=== PATIENT | male | born 1965 | race Caucasian/White ===

== ENCOUNTER 2018-04-12 13:09 | Observation (INO) | payer MEDICAID, OTHER ==
[2018-04-12] MEDS ORDERED: Sodium Chloride 0.9% 10 ML Syringe FLUSH PRN (13:32)
[2018-04-12] MEDS ORDERED: Sodium Chloride 0.9% 2.5 ML Syringe FLUSH PRN (13:32)
--- NOTE | 2018-04-12 13:51 | EDM.PDOC ---
ED HPI GENERAL MEDICAL PROBLEM - General Chief Complaint: Gastrointestinal Problem Stated Complaint: STOMACH PROBLEMS Time Seen by Provider: 04/12/18 13:45 Source of Information: Reports: Patient History Limitations: Reports: No Limitations - History of Present Illness INITIAL COMMENTS - FREE TEXT/NARRATIVE: HISTORY AND PHYSICAL: History of present illness: Patient is a 53-year-old male here with complaint of "stomach issues." Patient states that he has had diarrhea on and off for the past few months. He states it will come suddenly and sometimes will be incontinent of bowel due to this. He states he has been more bloated the past couple of weeks. He denies any abdominal pain, nausea, vomiting, chest pain, SOB, melena, hematochezia, fevers , chills. He also notes that he is concerned about his prostate stating that for the past year he has had to urinate more frequently as well as having trouble starting his stream. He states he has scheduled a colonoscopy for beginning of April. Patient does not have a PCP and denies any significant past medical history. Patient reports occasional alcohol use. Patient also report some weight loss of approximately 20 pounds within the last 2 months. Review of systems: As per history of present illness and below otherwise all systems reviewed and negative. Past medical history: As per history of present illness and as reviewed below otherwise noncontributory. Surgical history: As per history of present illness and as reviewed below otherwise noncontributory. Social history: Smokes 1 ppd x 35 years No reported history of drug or alcohol abuse. Family history: As per history of present illness and as reviewed below otherwise noncontributory. Physical exam: General: Patient sitting comfortably in no acute distress and nontoxic appearing HEENT: Atraumatic, normocephalic, pupils reactive, negative for conjunctival pallor or scleral icterus, mucous membranes moist, throat clear, neck supple, nontender, trachea midline. No meningeal signs. Lungs: Clear to auscultation, breath sounds equal bilaterally, chest nontender. Heart: S1S2, regular, negative for clicks, rubs, or overt murmur. Abdomen: Mild periumbilical tenderness to palpation. Abdomen is tympanenit and distended. Negative for masses or hepatosplenomegaly. Negative for costovertebral tenderness. Pelvis: Stable nontender. Genitourinary: Deferred. Rectal: Prostate not enlarged or boggy Extremities: Atraumatic, negative for cords or calf pain. Neurovascular unremarkable. Neuro: Awake, alert, oriented. Cranial nerves II through XII unremarkable. Cerebellum unremarkable. Motor and sensory unremarkable throughout. Exam nonfocal. Notes: Diagnostics: CBC, CMP, lipase, UA, UC, PT/INR CT abdomen/pelvis w/ contrast Therapeutics: None Prescriptions: None Impression: Ascites, diarrhea Plan: Discussed with Dr. Cohen, patient will be admitted to observation Definitive disposition and diagnosis as appropriate pending reevaluation and review of above. - Related Data Allergies Allergy/AdvReac Type Severity Reaction Status Date / Time No Known Allergies Allergy Verified 04/12/18 13:21 Home Meds: Home Meds Multivitamin [Children's Multivit W-Extra C] 1 tab DAILY 03/11/14 [History] Past Medical History - Past Surgical History GI Surgical History: Reports: Appendectomy, Colonoscopy Social & Family History - Family History Family Medical History: Noncontributory - Tobacco Use Smoking Status *Q: Current Every Day Smoker Years of Tobacco use: 35 Packs/Tins Daily: 1 - Caffeine Use Caffeine Use: Reports: None - Recreational Drug Use Recreational Drug Use: No ED ROS GENERAL - Review of Systems Review Of Systems: ROS reveals no pertinent complaints other than HPI. ED EXAM, GI/ABD - Physical Exam Exam: See Below (see dictation) Course - Vital Signs Last Recorded V/S: Last Vital Signs Temp 36.1 C 04/12/18 13:19 Pulse 125 H 04/12/18 13:19 Resp 18 04/12/18 13:19 BP 121/89 04/12/18 13:19 Pulse Ox 98 04/12/18 13:19 - Orders/Labs/Meds Orders: Active Orders 24 hr Category Date Time Status CULTURE URINE [RM] Stat Lab 04/12/18 14:04 Ordered UA W/MICROSCOPIC [URIN] Stat Lab 04/12/18 14:04 Ordered Labs: Laboratory Tests 04/12/18 04/12/18 Range/Units 13:37 13:37 WBC 13.50 H (4.0-11.0) K/uL RBC 3.78 L (4.50-5.90) M/uL Hgb 14.6 (13.0-17.0) g/dL Hct 42.1 (38.0-50.0) % MCV 111.4 H (80.0-98.0) fL MCH 38.6 H (27.0-32.0) pg MCHC 34.7 (31.0-37.0) g/dL RDW Std Deviation 54.1 (28.0-62.0) fl RDW Coeff of Charli 13 (11.0-15.0) % Plt Count 124 L (150-400) K/uL MPV 10.20 (7.40-12.00) fL Neut % (Auto) 70.7 (48.0-80.0) % Lymph % (Auto) 22.7 (16.0-40.0) % [place] % (Auto) 5.5 (0.0-15.0) % Eos % (Auto) 0.9 (0.0-7.0) % Baso % (Auto) 0.2 (0.0-1.5) % Neut # (Auto) 9.6 H (1.4-5.7) K/uL Lymph # (Auto) 3.1 H (0.6-2.4) K/uL [place] # (Auto) 0.7 (0.0-0.8) K/uL Eos # (Auto) 0.1 (0.0-0.7) K/uL Baso # (Auto) 0.0 (0.0-0.1) K/uL Nucleated RBC % 0.2 /100WBC Nucleated RBCs # 0 K/uL Sodium 142 (136-148) mmol/L Potassium 4.0 (3.5-5.1) mmol/L Chloride 105 (98-107) mmol/L Carbon Dioxide 26.1 (21.0-32.0) mmol/L BUN 3 L (7.0-18.0) mg/dL Creatinine 0.6 L (0.8-1.3) mg/dL Est Cr Clr Drug Dosing 146.61 mL/min Estimated GFR (MDRD) > 60.0 ml/min Glucose 94 (74-106) mg/dL Calcium 8.1 L (8.5-10.1) mg/dL Total Bilirubin 1.1 H (0.2-1.0) mg/dL AST 103 H (15-37) IU/L ALT 38 (14-63) IU/L Alkaline Phosphatase 476 H (46-116) U/L Total Protein 7.0 (6.4-8.2) g/dL Albumin 2.4 L (3.4-5.0) g/dL Globulin 4.6 H (2.0-3.5) g/dL Albumin/Globulin Ratio 0.5 L (1.3-2.8) Lipase 49 L (73-393) U/L Meds: Medications Discontinued Medications Generic Name Dose Route Start Last Admin Trade Name Freq PRN Reason Stop Dose Admin Iopamidol 100 ml 04/12/18 14:57 04/12/18 14:58 Isovue-370 (76%) IVPUSH 04/12/18 14:58 100 ml ONETIME ONE Administration Sodium Chloride 10 ml 04/12/18 13:32 04/12/18 14:29 Saline Flush FLUSH 10 ml ASDIRECTED PRN Administration Keep Vein Open Sodium Chloride 2.5 ml 04/12/18 13:32 04/12/18 14:29 Saline Flush FLUSH 2.5 ml ASDIRECTED PRN Administration Keep Vein Open Departure - Departure Time of Disposition: 15:59 Disposition: Refer to Observation Condition: Good Clinical Impression: Ascites, Diarrhea - Discharge Information Referrals: PCP,None [Primary Care Provider] - Forms: ED Department Discharge - My Orders Last 24 Hours: My Active Orders 04/12/18 14:04 CULTURE URINE [RM] Stat UA W/MICROSCOPIC [URIN] Stat - Assessment/Plan Last 24 Hours: My Active Orders 04/12/18 14:04 CULTURE URINE [RM] Stat UA W/MICROSCOPIC [URIN] Stat
[2018-04-12 14:16] LABS: CHLORIDE,CL 105 mmol/L (98-107); SODIUM,NA 142 mmol/L (136-148)
[2018-04-12] MEDS ORDERED: Iopamidol 755 Mg/ML 100 ML Bottle IVPUSH ONE (14:57)
--- NOTE | 2018-04-12 15:22 | CT ---
CT of the abdomen and pelvis with contrast. HISTORY: Pain TECHNIQUE: Axial CT images were obtained of the abdomen and pelvis following administration of 100 mL of Isovue-370 in the right antecubital fossa without complication. Coronal and sagittal reconstructi ons obtained. Comparison: 03/11/2014. FINDINGS: The lung bases are clear. Trace right pleural effusion. The liver is heterogeneous in enhancement demonstrating a mildly nodular contour. There is a small to moderate amount of abdominal ascites. The spleen and adrenal glands appear normal. Mild pericholecys tic fluid, likely generalized ascites. There is a 2.3 cm cystic collection at tail of the pancreas, l ikely a residual pseudocyst. Pancreatic duct is otherwise mildly prominent. The kidneys enhance and function symmetrically without evidence of obstructive uropathy. The large and small bowel are normal in caliber without evidence of obstruction. No focal pericolonic inflammation. The urinary bladder is minimally filled. No pelvic lymphadenopathy. No suspicious osseous abnormalities identified. IMPRESSION: 1. The liver is heterogeneous in echotexture and overall hypodense. This likely represents underlying cirrhosis versus active steatohepatitis. 2. Small to moderate amount of abdominal ascites. 3. 2.3 cm cyst at the tail of the pancreas, likely a pseudocyst.
[2018-04-12] MEDS ORDERED: Temazepam 15 MG Cap PO PRN (17:52)
[2018-04-12] MEDS ORDERED: Acetaminophen 325 MG Tab PO PRN (17:52)
[2018-04-12] MEDS ORDERED: LORazepam 1 MG Tab PO PRN (17:53)
[2018-04-12] MEDS: Nicotine 21 MG/24 Hr Patch TRDERM SCH (21:44)
--- NOTE | 2018-04-12 21:54 | PCM.HP ---
H&P History of Present Illness - General Date of Service: 04/12/18 Admit Problem/Dx: Admission Diagnosis/Problem Admission Diagnosis/Problem Ascites - History of Present Illness Initial Comments - Free Text/Narative: He presented today to the ED stating that he notes a fullness in his abdomen. This has been gradual over a few weeks. He denies heavy drinking but states that he has had heavy drinking in the past. He states that he drinks everyday "sometimes". no fever no vomiting no abdominal pain - Related Data Allergies/Adverse Reactions: Allergies Allergy/AdvReac Type Severity Reaction Status Date / Time No Known Allergies Allergy Verified 04/12/18 13:21 Home Medications: Home Meds Multivitamin [Children's Multivit W-Extra C] 1 tab DAILY 03/11/14 [History] Past Medical History Cardiovascular History: Denies: CAD Respiratory History: Reports: Asthma, Other (See Below) Other Respiratory History: asthma as a child Gastrointestinal History: Reports: Chronic Diarrhea Genitourinary History: Reports: Other (See Below) Other Genitourinary History: difficulty urinating Neurological History: Denies: Alzheimers Disease, MS Endocrine/Metabolic History: Denies: Diabetes, Type I, Diabetes, Type II Oncologic (Cancer) History: Denies: Liver - Infectious Disease History Infectious Disease History: Reports: Chicken Pox - Past Surgical History GI Surgical History: Reports: Appendectomy, Colonoscopy Male Surgical History: Reports: None Dermatological Surgical History: Reports: Other (See Below) Social & Family History - Family History Family Medical History: Noncontributory - Tobacco Use Smoking Status *Q: Current Every Day Smoker Years of Tobacco use: 36 Packs/Tins Daily: 1 Second Hand Smoke Exposure: No - Caffeine Use Caffeine Use: Reports: Energy Drinks Caffeine Use Comment: occ energy drink - Alcohol Use Days Per Week of Alcohol Use: 2 Number of Drinks Per Day: 3 Total Drinks Per Week: 6 - Recreational Drug Use Recreational Drug Use: No H&P Review of Systems - Review of Systems: Review Of Systems: See Below General: Denies: Fever, Chills Pulmonary: Denies: Shortness of Breath, Wheezing, Cough, Sputum, Hemoptysis Cardiovascular: Reports: Other (occasional dependent trace LE edema). Denies: Chest Pain Gastrointestinal: Denies: Abdominal Pain, Black Stool, Bloody Stool, Hematemesis , Vomiting Genitourinary: Denies: Dysuria, Hematuria Skin: Denies: Cyanosis Neurological: Denies: Confusion Exam - Exam Exam: See Below - Vital Signs Vital Signs: Last Vital Signs Temp 98.8 F 04/12/18 17:39 Pulse 93 04/12/18 17:39 Resp 18 04/12/18 17:39 BP 136/91 H 04/12/18 17:39 Pulse Ox 94 L 04/12/18 17:39 Weight: 70.488 kg - Exam General: Alert, Oriented, Cooperative HEENT: Other (diffuse gum recession/gingivitis) Neck: Supple, Trachea Midline Lungs: Clear to Auscultation, Normal Respiratory Effort Cardiovascular: Regular Rate, Regular Rhythm GI/Abdominal Exam: Soft, Distended, Other (positive fluid wave c/w ascites). No : Guarding, Rigid, Rebound, Tender (Male) Exam: Deferred Rectal (Males) Exam: Deferred Extremities: Other (trace pretibial edema - pitting) Neurological: Cranial Nerves Intact, Normal Speech Neuro Extensive - Motor, Sensory, Reflexes: No: Facial palsy (L), Facial Palsy ( R) Psychiatric: No: Agitated - Patient Data Lab Results Last 24 hrs: Laboratory Results - last 24 hr 04/12/18 04/12/18 04/12/18 Range/Units 13:37 13:37 13:37 WBC 13.50 H (4.0-11.0) K/uL RBC 3.78 L (4.50-5.90) M/uL Hgb 14.6 (13.0-17.0) g/dL Hct 42.1 (38.0-50.0) % MCV 111.4 H (80.0-98.0) fL MCH 38.6 H (27.0-32.0) pg MCHC 34.7 (31.0-37.0) g/dL RDW Std Deviation 54.1 (28.0-62.0) fl RDW Coeff of Charli 13 (11.0-15.0) % Plt Count 124 L (150-400) K/uL MPV 10.20 (7.40-12.00) fL Neut % (Auto) 70.7 (48.0-80.0) % Lymph % (Auto) 22.7 (16.0-40.0) % [place] % (Auto) 5.5 (0.0-15.0) % Eos % (Auto) 0.9 (0.0-7.0) % Baso % (Auto) 0.2 (0.0-1.5) % Neut # (Auto) 9.6 H (1.4-5.7) K/uL Lymph # (Auto) 3.1 H (0.6-2.4) K/uL [place] # (Auto) 0.7 (0.0-0.8) K/uL Eos # (Auto) 0.1 (0.0-0.7) K/uL Baso # (Auto) 0.0 (0.0-0.1) K/uL Nucleated RBC % 0.2 /100WBC Nucleated RBCs # 0 K/uL INR 1.18 Sodium 142 (136-148) mmol/L Potassium 4.0 (3.5-5.1) mmol/L Chloride 105 (98-107) mmol/L Carbon Dioxide 26.1 (21.0-32.0) mmol/L BUN 3 L (7.0-18.0) mg/dL Creatinine 0.6 L (0.8-1.3) mg/dL Est Cr Clr Drug Dosing 146.61 mL/min Estimated GFR (MDRD) > 60.0 ml/min Glucose 94 (74-106) mg/dL Calcium 8.1 L (8.5-10.1) mg/dL Total Bilirubin 1.1 H (0.2-1.0) mg/dL AST 103 H (15-37) IU/L ALT 38 (14-63) IU/L Alkaline Phosphatase 476 H (46-116) U/L Total Protein 7.0 (6.4-8.2) g/dL Albumin 2.4 L (3.4-5.0) g/dL Globulin 4.6 H (2.0-3.5) g/dL Albumin/Globulin Ratio 0.5 L (1.3-2.8) Lipase 49 L (73-393) U/L Urine Color Urine Appearance Urine pH (5.0-8.0) Ur Specific [place] (1.001-1.035) Urine Protein (NEGATIVE) mg/dL Urine Glucose (UA) (NEGATIVE) mg/dL Urine Ketones (NEGATIVE) mg/dL Urine Occult Blood (NEGATIVE) Urine Nitrite (NEGATIVE) Urine Bilirubin (NEGATIVE) Urine Urobilinogen (<2.0) EU/dL Ur Leukocyte Esterase (NEGATIVE) Urine RBC (0-2/HPF) Urine WBC (0-5/HPF) Ur Epithelial Cells (NONE-FEW) Amorphous Sediment (NEGATIVE) Urine Bacteria (NEGATIVE) Urine Mucus (NONE-MOD) 04/12/18 Range/Units 16:15 WBC (4.0-11.0) K/uL RBC (4.50-5.90) M/uL Hgb (13.0-17.0) g/dL Hct (38.0-50.0) % MCV (80.0-98.0) fL MCH (27.0-32.0) pg MCHC (31.0-37.0) g/dL RDW Std Deviation (28.0-62.0) fl RDW Coeff of Charli (11.0-15.0) % Plt Count (150-400) K/uL MPV (7.40-12.00) fL Neut % (Auto) (48.0-80.0) % Lymph % (Auto) (16.0-40.0) % [place] % (Auto) (0.0-15.0) % Eos % (Auto) (0.0-7.0) % Baso % (Auto) (0.0-1.5) % Neut # (Auto) (1.4-5.7) K/uL Lymph # (Auto) (0.6-2.4) K/uL [place] # (Auto) (0.0-0.8) K/uL Eos # (Auto) (0.0-0.7) K/uL Baso # (Auto) (0.0-0.1) K/uL Nucleated RBC % /100WBC Nucleated RBCs # K/uL INR Sodium (136-148) mmol/L Potassium (3.5-5.1) mmol/L Chloride (98-107) mmol/L Carbon Dioxide (21.0-32.0) mmol/L BUN (7.0-18.0) mg/dL Creatinine (0.8-1.3) mg/dL Est Cr Clr Drug Dosing mL/min Estimated GFR (MDRD) ml/min Glucose (74-106) mg/dL Calcium (8.5-10.1) mg/dL Total Bilirubin (0.2-1.0) mg/dL AST (15-37) IU/L ALT (14-63) IU/L Alkaline Phosphatase (46-116) U/L Total Protein (6.4-8.2) g/dL Albumin (3.4-5.0) g/dL Globulin (2.0-3.5) g/dL Albumin/Globulin Ratio (1.3-2.8) Lipase (73-393) U/L Urine Color YELLOW Urine Appearance CLEAR Urine pH 7.5 (5.0-8.0) Ur Specific [place] 1.010 (1.001-1.035) Urine Protein NEGATIVE (NEGATIVE) mg/dL Urine Glucose (UA) NEGATIVE (NEGATIVE) mg/dL Urine Ketones NEGATIVE (NEGATIVE) mg/dL Urine Occult Blood NEGATIVE (NEGATIVE) Urine Nitrite NEGATIVE (NEGATIVE) Urine Bilirubin NEGATIVE (NEGATIVE) Urine Urobilinogen 2.0 H (<2.0) EU/dL Ur Leukocyte Esterase NEGATIVE (NEGATIVE) Urine RBC NONE SEEN (0-2/HPF) Urine WBC 0-2 (0-5/HPF) Ur Epithelial Cells RARE (NONE-FEW) Amorphous Sediment NOT SEEN (NEGATIVE) Urine Bacteria NOT SEEN (NEGATIVE) Urine Mucus LIGHT (NONE-MOD) Result Diagrams: 04/12/18 13:37 04/12/18 13:37 - Problem List (1) Hepatic cirrhosis SNOMED Code(s): 98454287 ICD Code: K74.60 - UNSPECIFIED CIRRHOSIS OF LIVER Status: Acute Current Visit: Yes (2) Ascites SNOMED Code(s): 670152765 ICD Code: R18.8 - OTHER ASCITES Status: Acute Current Visit: Yes Problem List Initiated/Reviewed/Updated: Yes Orders Last 24hrs: Active Orders 24 hr Category Date Time Status Admission Status [Patient Status] [ADT] Stat ADT 04/12/18 15:59 Active Oxygen Therapy [RC] PRN Care 04/12/18 20:40 Active VTE/DVT Education [RC] PER UNIT ROUTINE Care 04/12/18 20:40 Active Vital Signs [RC] Q4H Care 04/12/18 20:40 Active Regular Diet [DIET] Diet 04/12/18 Dinner Active US Guidance Paracentesis NC [CR] Routine Exams 04/13/18 09:00 Ordered CBC WITH AUTO DIFF [HEME] Routine Lab 04/13/18 05:11 Ordered COMPREHENSIVE METABOLIC PN,CMP [CHEM] Routine Lab 04/13/18 05:11 Ordered CULTURE URINE [RM] Stat Lab 04/12/18 14:04 Ordered HEPATITIS PANEL (4) [REF] Routine Lab 04/13/18 05:11 Ordered INR,PT,PROTHROMBIN TIME [COAG] Routine Lab 04/13/18 05:11 Ordered Acetaminophen [Tylenol] Med 04/12/18 17:52 Active 325 mg PO Q4H PRN LORazepam [Ativan] Med 04/12/18 17:53 Active 1 mg PO Q6H PRN Multivitamins [Tab-A-Portillo] Med 04/13/18 09:00 Active 1 tab PO DAILY Nicotine [Habitrol] Med 04/12/18 21:30 Active 21 mg TRDERM DAILY Temazepam [Restoril] Med 04/12/18 17:52 Active 15 mg PO BEDTIME PRN Resuscitation Status Routine Resus Stat 04/12/18 20:40 Ordered Medication Orders Acetaminophen (Tylenol) 325 mg PO Q4H PRN PRN Reason: PAIN/FEVER Lorazepam (Ativan) 1 mg PO Q6H PRN PRN Reason: ANXIETY Multivitamins/Minerals/Vitamin C (Tab-A-Portillo) 1 tab PO DAILY MARIZA Nicotine (Habitrol) 21 mg TRDERM DAILY MARIZA Last Admin: 04/12/18 21:44 Dose: 21 mg Temazepam (Restoril) 15 mg PO BEDTIME PRN PRN Reason: SLEEP Assessment/Plan Comment:: I spoke with Dr Santiago Moe and have ordered an ultrasound guided paracentesis tomorrow.
[2018-04-12] MEDS ORDERED: Thiamine 100 MG Tab PO SCH (22:00)
[2018-04-13 05:51] LABS: CHLORIDE,CL 102 mmol/L (98-107); SODIUM,NA 137 mmol/L (136-148)
[2018-04-13] MEDS: Nicotine 21 MG/24 Hr Patch TRDERM SCH (08:48)
[2018-04-13] MEDS ORDERED: Multivitamin Tab PO SCH (09:00)
[2018-04-13 12:00] VITALS: BP 143/99
--- NOTE | 2018-04-13 15:00 | PCM.DCSUM1 ---
Discharge Summary - Hospital Course Free Text/Narrative:: He was admitted for monitoring with a plan to do an ultrasound guided paracentesis. - Discharge Data Discharge Date: 04/13/18 Discharge Disposition: Home, Self-Care 01 Condition: Stable - Discharge Diagnosis/Problem(s) (1) Hepatic cirrhosis SNOMED Code(s): 29955828 ICD Code: K74.60 - UNSPECIFIED CIRRHOSIS OF LIVER Status: Acute Current Visit: Yes (2) Ascites SNOMED Code(s): 956837934 ICD Code: R18.8 - OTHER ASCITES Status: Acute Current Visit: Yes - Patient Summary/Data Hospital Course: He was monitored. Lab was ordered which showed changes suggestive of alcoholic chronic liver disease including, macrocytosis, thrombocytopenia, low serum protein, low folic acid level, low serum magnesium, elevated serum ammonia. Hepatitis serology is pending. Imaging showed changes of steatohepatitis and ascites. I advised against a paracentesis at this time as I believe it very unlikely to be of therapeutic benefit to him. Impression chronic liver cirrhosis Plan follow up with family medicine avoid any alcohol thiamine 100 mg daily x one week folic acid 1 mg daily magnesium oxide 400 mg bid Alvarado Cohen MD - Discharge Plan Prescriptions/Med Rec: Folic Acid 1 mg PO BEDTIME #100 tab Thiamine [Vitamin B-1] 100 mg PO BEDTIME #7 tablet Home Medications: Home Meds Folic Acid 1 mg PO BEDTIME #100 tab 04/13/18 [Rx] Thiamine [Vitamin B-1] 100 mg PO BEDTIME #7 tablet 04/13/18 [Rx] Forms: ED Department Discharge Referrals: PCP,None [Primary Care Provider] - - Patient Data Vitals - Most Recent: Last Vital Signs Temp 97.7 F 04/13/18 11:59 Pulse 92 04/13/18 11:59 Resp 20 04/13/18 11:59 BP 143/99 H 04/13/18 11:59 Pulse Ox 97 04/13/18 11:59 Weight - Most Recent: 70.488 kg I&O - Last 24 hours: Intake & Output 04/12/18 04/13/18 04/13/18 22:59 06:59 14:59 Intake Total 210 Output Total 400 Balance -190 Lab Results - Last 24 hrs: Laboratory Results - last 24 hr 04/12/18 04/12/18 04/13/18 Range/Units 13:37 16:15 05:05 WBC 10.51 (4.0-11.0) K/uL RBC 3.48 L (4.50-5.90) M/uL Hgb 12.9 L (13.0-17.0) g/dL Hct 38.2 (38.0-50.0) % MCV 109.8 H (80.0-98.0) fL MCH 37.1 H (27.0-32.0) pg MCHC 33.8 (31.0-37.0) g/dL RDW Std Deviation 52.0 (28.0-62.0) fl RDW Coeff of Charli 13 (11.0-15.0) % Plt Count 108 L (150-400) K/uL MPV 10.50 (7.40-12.00) fL Neut % (Auto) 75.2 (48.0-80.0) % Lymph % (Auto) 15.8 L (16.0-40.0) % [place] % (Auto) 7.9 (0.0-15.0) % Eos % (Auto) 0.7 (0.0-7.0) % Baso % (Auto) 0.4 (0.0-1.5) % Neut # (Auto) 7.9 H (1.4-5.7) K/uL Lymph # (Auto) 1.7 (0.6-2.4) K/uL [place] # (Auto) 0.8 (0.0-0.8) K/uL Eos # (Auto) 0.1 (0.0-0.7) K/uL Baso # (Auto) 0.0 (0.0-0.1) K/uL Nucleated RBC % 0.0 /100WBC Nucleated RBCs # 0 K/uL INR 1.18 Sodium (136-148) mmol/L Potassium (3.5-5.1) mmol/L Chloride (98-107) mmol/L Carbon Dioxide (21.0-32.0) mmol/L BUN (7.0-18.0) mg/dL Creatinine (0.8-1.3) mg/dL Est Cr Clr Drug Dosing mL/min Estimated GFR (MDRD) ml/min Glucose (74-106) mg/dL Calcium (8.5-10.1) mg/dL Magnesium (1.8-2.4) mg/dL Total Bilirubin (0.2-1.0) mg/dL AST (15-37) IU/L ALT (14-63) IU/L Alkaline Phosphatase (46-116) U/L Ammonia (19-54) ug/dL Total Protein (6.4-8.2) g/dL Albumin (3.4-5.0) g/dL Globulin (2.0-3.5) g/dL Albumin/Globulin Ratio (1.3-2.8) Urine Color YELLOW Urine Appearance CLEAR Urine pH 7.5 (5.0-8.0) Ur Specific [place] 1.010 (1.001-1.035) Urine Protein NEGATIVE (NEGATIVE) mg/dL Urine Glucose (UA) NEGATIVE (NEGATIVE) mg/dL Urine Ketones NEGATIVE (NEGATIVE) mg/dL Urine Occult Blood NEGATIVE (NEGATIVE) Urine Nitrite NEGATIVE (NEGATIVE) Urine Bilirubin NEGATIVE (NEGATIVE) Urine Urobilinogen 2.0 H (<2.0) EU/dL Ur Leukocyte Esterase NEGATIVE (NEGATIVE) Urine RBC NONE SEEN (0-2/HPF) Urine WBC 0-2 (0-5/HPF) Ur Epithelial Cells RARE (NONE-FEW) Amorphous Sediment NOT SEEN (NEGATIVE) Urine Bacteria NOT SEEN (NEGATIVE) Urine Mucus LIGHT (NONE-MOD) 04/13/18 04/13/18 04/13/18 Range/Units 05:05 05:05 06:05 WBC (4.0-11.0) K/uL RBC (4.50-5.90) M/uL Hgb (13.0-17.0) g/dL Hct (38.0-50.0) % MCV (80.0-98.0) fL MCH (27.0-32.0) pg MCHC (31.0-37.0) g/dL RDW Std Deviation (28.0-62.0) fl RDW Coeff of Charli (11.0-15.0) % Plt Count (150-400) K/uL MPV (7.40-12.00) fL Neut % (Auto) (48.0-80.0) % Lymph % (Auto) (16.0-40.0) % [place] % (Auto) (0.0-15.0) % Eos % (Auto) (0.0-7.0) % Baso % (Auto) (0.0-1.5) % Neut # (Auto) (1.4-5.7) K/uL Lymph # (Auto) (0.6-2.4) K/uL [place] # (Auto) (0.0-0.8) K/uL Eos # (Auto) (0.0-0.7) K/uL Baso # (Auto) (0.0-0.1) K/uL Nucleated RBC % /100WBC Nucleated RBCs # K/uL INR 1.25 Sodium 137 (136-148) mmol/L Potassium 3.8 (3.5-5.1) mmol/L Chloride 102 (98-107) mmol/L Carbon Dioxide 27.2 (21.0-32.0) mmol/L BUN 3 L (7.0-18.0) mg/dL Creatinine 0.6 L (0.8-1.3) mg/dL Est Cr Clr Drug Dosing 141.96 mL/min Estimated GFR (MDRD) > 60.0 ml/min Glucose 95 (74-106) mg/dL Calcium 7.8 L (8.5-10.1) mg/dL Magnesium 1.2 L (1.8-2.4) mg/dL Total Bilirubin 1.6 H (0.2-1.0) mg/dL AST 82 H (15-37) IU/L ALT 33 (14-63) IU/L Alkaline Phosphatase 426 H (46-116) U/L Ammonia 82 H (19-54) ug/dL Total Protein 6.3 L (6.4-8.2) g/dL Albumin 2.2 L (3.4-5.0) g/dL Globulin 4.1 H (2.0-3.5) g/dL Albumin/Globulin Ratio 0.5 L (1.3-2.8) Urine Color Urine Appearance Urine pH (5.0-8.0) Ur Specific [place] (1.001-1.035) Urine Protein (NEGATIVE) mg/dL Urine Glucose (UA) (NEGATIVE) mg/dL Urine Ketones (NEGATIVE) mg/dL Urine Occult Blood (NEGATIVE) Urine Nitrite (NEGATIVE) Urine Bilirubin (NEGATIVE) Urine Urobilinogen (<2.0) EU/dL Ur Leukocyte Esterase (NEGATIVE) Urine RBC (0-2/HPF) Urine WBC (0-5/HPF) Ur Epithelial Cells (NONE-FEW) Amorphous Sediment (NEGATIVE) Urine Bacteria (NEGATIVE) Urine Mucus (NONE-MOD) Med Orders - Current: Current Medications Acetaminophen (Tylenol) 325 mg PO Q4H PRN PRN Reason: PAIN/FEVER Lorazepam (Ativan) 1 mg PO Q6H PRN PRN Reason: ANXIETY Multivitamins/Minerals/Vitamin C (Tab-A-Portillo) 1 tab PO DAILY [facility] Last Admin: 04/13/18 08:48 Dose: 1 tab Nicotine (Habitrol) 21 mg TRDERM DAILY [facility] Last Admin: 04/13/18 08:48 Dose: 21 mg Temazepam (Restoril) 15 mg PO BEDTIME PRN PRN Reason: SLEEP Last Admin: 04/12/18 22:24 Dose: 15 mg Thiamine HCl (Vitamin B-1) 100 mg PO BEDTIME [facility] Last Admin: 04/12/18 22:23 Dose: 100 mg Discontinued Medications Iopamidol (Isovue-370 (76%)) 100 ml IVPUSH ONETIME ONE Stop: 04/12/18 14:58 Last Admin: 04/12/18 14:58 Dose: 100 ml Sodium Chloride (Saline Flush) 10 ml FLUSH ASDIRECTED PRN PRN Reason: Keep Vein Open Last Admin: 04/12/18 14:29 Dose: 10 ml Sodium Chloride (Saline Flush) 2.5 ml FLUSH ASDIRECTED PRN PRN Reason: Keep Vein Open Last Admin: 04/12/18 14:29 Dose: 2.5 ml
== END 2018-04-13 16:10 | disposition home or self-care (01) ==
LOC: MW.ED 13:09 → MW.MS 15:59
PROVIDERS: ADMIT Family Medicine; ATTEND Family Medicine
DX: K74.60 Unspecified cirrhosis of liver (principal); R18.8 Other ascites; K86.2 Cyst of pancreas; I25.10 Atherosclerotic heart disease of native coronary artery without angina pectoris; J45.909 Unspecified asthma, uncomplicated; E11.9 Type 2 diabetes mellitus without complications; F17.210 Nicotine dependence, cigarettes, uncomplicated; Z79.899 Other long term (current) drug therapy
CPT/HCPCS: 36415; 74177; 80053; 80074; 81001; 82140; 83690; 83735; 85025; 85610; 87086; 99285; A9270; G0378; Q9967

== ENCOUNTER 2018-08-14 11:32 | Emergency (ER) | payer SELFPAY ==
[2018-08-14] MEDS ORDERED: Aspirin 81 MG Tab.Chew PO ONE (11:34)
--- NOTE | 2018-08-14 11:35 | EDM.PDOC ---
ED HPI GENERAL MEDICAL PROBLEM - General Chief Complaint: Chest Pain Stated Complaint: CHEST PAIN SHORTNESS OF BREATH Time Seen by Provider: 08/14/18 11:34 Source of Information: Reports: Patient - History of Present Illness INITIAL COMMENTS - FREE TEXT/NARRATIVE: HISTORY AND PHYSICAL: History of present illness: [A shunt presents with right-sided chest pain/discomfort 3 out of 10 worsened by movement and can reproduce with palpation no fever nausea vomiting chills sweats no substernal chest pain shortness breath headache dizziness or palpitation no bowel or urine symptoms no diaphoresis no radiation arm neck or jaw ] Review of systems: As per history of present illness and below otherwise all systems reviewed and negative. Past medical history: As per history of present illness and as reviewed below otherwise noncontributory. Surgical history: As per history of present illness and as reviewed below otherwise noncontributory. Social history: No reported history of drug or alcohol abuse. Family history: As per history of present illness and as reviewed below otherwise noncontributory. Physical exam: HEENT: Atraumatic, normocephalic, pupils reactive, negative for conjunctival pallor or scleral icterus, mucous membranes moist, throat clear, neck supple, nontender, trachea midline. Lungs: Clear to auscultation, breath sounds equal bilaterally, chest nontender. Heart: S1S2, regular, negative for clicks, rubs, or JVD. Abdomen: Soft, nondistended, nontender. Negative for masses or hepatosplenomegaly. Negative for costovertebral tenderness. Pelvis: Stable nontender. Genitourinary: Deferred. Rectal: Deferred. Extremities: Atraumatic, negative for cords or calf pain. Neurovascular unremarkable. Neuro: Awake, alert, oriented. Cranial nerves II through XII unremarkable. Cerebellum unremarkable. Motor and sensory unremarkable throughout. Exam nonfocal. Diagnostics: []E CMP amylase lipase UA EKG Chest 1 view Therapeutics: [] aspirin 324 mg chewable Pressor 5 mg IV Vasotec 0.625 mg IV Levaquin 750 mg by mouth daily #10 no refill HFA Is offered admission however were on diversion hence he refuses transfer and therefore admission Impression: Producible chest wall pain Pneumonia ti Definitive disposition and diagnosis as appropriate pending reevaluation and review of above. right chest Pain Score (Numeric/FACES): 7 - Related Data Allergies Allergy/AdvReac Type Severity Reaction Status Date / Time No Known Allergies Allergy Verified 08/14/18 11:39 Home Meds: Home Meds Cyanocobalamin (Vitamin B12) [Vitamin B12] 1 tab PO DAILY 08/14/18 [History] Iron 1 tab PO DAILY 08/14/18 [History] Past Medical History Respiratory History: Reports: Asthma, Other (See Below) Other Respiratory History: asthma as a child Gastrointestinal History: Reports: Chronic Diarrhea Genitourinary History: Reports: Other (See Below) Other Genitourinary History: difficulty urinating - Infectious Disease History Infectious Disease History: Reports: Chicken Pox - Past Surgical History GI Surgical History: Reports: Appendectomy, Colonoscopy Male Surgical History: Reports: None Dermatological Surgical History: Reports: Other (See Below) Social & Family History - Family History Family Medical History: Noncontributory - Caffeine Use Caffeine Use: Reports: Energy Drinks Caffeine Use Comment: occ energy drink ED ROS GENERAL - Review of Systems Review Of Systems: See Below ED EXAM, GENERAL - Physical Exam Exam: See Below Course - Vital Signs Last Recorded V/S: Last Vital Signs Temp 96.3 F 08/14/18 11:40 Pulse 89 08/14/18 12:41 Resp 16 08/14/18 12:41 BP 128/97 H 08/14/18 12:41 Pulse Ox 93 L 08/14/18 12:41 - Orders/Labs/Meds Orders: Active Orders 24 hr Category Date Time Status EKG Documentation Completion [RC] STAT Care 08/14/18 11:34 Active UA RFX SARAH AND CULT IF INDIC [URIN] Stat Lab 08/14/18 11:34 Ordered Labs: Laboratory Tests 08/14/18 08/14/18 08/14/18 Range/Units 11:45 11:45 11:45 WBC 13.27 H (4.0-11.0) K/uL RBC 3.66 L (4.50-5.90) M/uL Hgb 13.9 (13.0-17.0) g/dL Hct 39.5 (38.0-50.0) % MCV 107.9 H (80.0-98.0) fL MCH 38.0 H (27.0-32.0) pg MCHC 35.2 (31.0-37.0) g/dL RDW Std Deviation 51.2 (28.0-62.0) fl RDW Coeff of Charli 13 (11.0-15.0) % Plt Count 230 (150-400) K/uL MPV 9.70 (7.40-12.00) fL Add Manual Diff YES Neutrophils % (Manual) 68 (48.0-80.0) % Band Neutrophils % 3 % Lymphocytes % (Manual) 21 (16.0-40.0) % Monocytes % (Manual) 8 (0.0-15.0) % Nucleated RBC % 0.0 /100WBC Absolute Seg Neuts 9.0 H (1.4-5.7) Band Neutrophils # 0.4 Lymphocytes # (Manual) 2.8 H (0.6-2.4) Monocytes # (Manual) 1.1 H (0.0-0.8) Nucleated RBCs # 0 K/uL INR 1.13 Sodium 136 (136-148) mmol/L Potassium 3.8 (3.5-5.1) mmol/L Chloride 98 (98-107) mmol/L Carbon Dioxide 27.1 (21.0-32.0) mmol/L BUN 3 L (7.0-18.0) mg/dL Creatinine 0.7 L (0.8-1.3) mg/dL Est Cr Clr Drug Dosing 129.19 mL/min Estimated GFR (MDRD) > 60.0 ml/min Glucose 132 H (74-106) mg/dL Calcium 8.5 (8.5-10.1) mg/dL Total Bilirubin 1.5 H (0.2-1.0) mg/dL AST 52 H (15-37) IU/L ALT 24 (14-63) IU/L Alkaline Phosphatase 377 H (46-116) U/L Troponin I < 0.050 (0.000-0.056) ng/mL Total Protein 7.6 (6.4-8.2) g/dL Albumin 2.5 L (3.4-5.0) g/dL Globulin 5.1 H (2.6-4.0) g/dL Albumin/Globulin Ratio 0.5 L (0.9-1.6) Lipase 41 L (73-393) U/L Meds: Medications Discontinued Medications Generic Name Dose Route Start Last Admin Trade Name Freq PRN Reason Stop Dose Admin Aspirin 324 mg 08/14/18 11:34 08/14/18 11:48 Aspirin PO 08/14/18 11:35 324 mg ONETIME ONE Administration Enalaprilat 0.625 mg 08/14/18 12:22 08/14/18 12:36 Vasotec Iv IVPUSH 08/14/18 12:23 0.625 mg ONETIME ONE Administration Metoprolol Tartrate 5 mg 08/14/18 12:15 08/14/18 12:16 Lopressor IVPUSH 08/14/18 12:26 5 mg Q5M MARIZA Administration Departure - Departure Time of Disposition: 13:04 Disposition: Home, Self-Care 01 Condition: Good Clinical Impression: Pneumonia - Discharge Information Referrals: PCP,None [Primary Care Provider] - Forms: ED Department Discharge Additional Instructions: Medication as prescribed Return if symptoms persist or worsen despite treatment Follow-up with primary care in 2 weeks sooner as needed, call phone number below to schedule appropriate follow-up [facility] - [facility] [address] [place] [address] The following information is given to patients seen in the emergency department who are being discharged to home. This information is to outline your options for follow-up care. We provide all patients seen in our emergency department with a follow-up referral. The need for follow-up, as well as the timing and circumstances, are variable depending upon the specifics of your emergency department visit. If you don't have a primary care physician on staff, we will provide you with a referral. We always advise you to contact your personal physician following an emergency department visit to inform them of the circumstance of the visit and for follow-up with them and/or the need for any referrals to a consulting specialist. The emergency department will also refer you to a specialist when appropriate. This referral assures that you have the opportunity for follow-up care with a specialist. All of these measure are taken in an effort to provide you with optimal care, which includes your follow-up. Under all circumstances we always encourage you to contact your private physician who remains a resource for coordinating your care. When calling for follow-up care, please make the office aware that this follow-up is from your recent emergency room visit. If for any reason you are refused follow-up, please contact the [facility] emergency department at and asked to speak to the emergency department charge nurse. - My Orders Last 24 Hours: My Active Orders 08/14/18 11:34 EKG Documentation Completion [RC] STAT UA RFX SARAH AND CULT IF INDIC [URIN] Stat - Assessment/Plan Last 24 Hours: My Active Orders 08/14/18 11:34 EKG Documentation Completion [RC] STAT UA RFX SARAH AND CULT IF INDIC [URIN] Stat
[2018-08-14] MEDS ORDERED: Metoprolol Tartrate 5 MG/5 ML SDV IVPUSH SCH (12:15)
[2018-08-14 12:16] LABS: CHLORIDE,CL 98 mmol/L (98-107); SODIUM,NA 136 mmol/L (136-148)
[2018-08-14] MEDS ORDERED: Enalaprilat 1.25 MG/ML SDV IVPUSH ONE (12:22)
--- NOTE | 2018-08-14 12:24 | CR ---
EXAMINATION: Portable chest radiograph. HISTORY: Pain. FINDINGS: The trachea is midline. The cardiomediastinal silhouette is within normal limits. Patchy right apical infiltrate noted. No pleural effusion or pneumothorax. Osseous structures appear unremarkable. IMPRESSION: 1. Right eighth of infiltrate, likely a developing pneumonia.
[2018-08-14 13:05] VITALS: BP 126/93
== END 2018-08-14 13:15 | disposition home or self-care (01) ==
LOC: MW.ED 11:32
DX: J18.9 Pneumonia, unspecified organism (principal); R07.89 Other chest pain; F17.210 Nicotine dependence, cigarettes, uncomplicated
CPT/HCPCS: 36415; 71045; 80053; 83690; 84484; 85025; 85610; 96374; 96375; 99285; A9270; J3490; 99284

== ENCOUNTER 2018-11-19 16:09 | Observation (INO) | payer MEDICAID, OTHER ==
[2018-11-19] MEDS ORDERED: LORazepam 2 MG/ML SDV IVPUSH ONE (16:43)
[2018-11-19] MEDS ORDERED: MVI, Adult with Vitamin K 10 ML, Thiamine 100 MG, Folic Acid 1 MG in Sodium Chloride 0.... IV ONE ×4 (16:43)
--- NOTE | 2018-11-19 16:48 | EDM.PDOC ---
ED HPI GENERAL MEDICAL PROBLEM - General Chief Complaint: General Stated Complaint: SPOKE TO NURSE Time Seen by Provider: 11/19/18 16:19 Source of Information: Reports: Patient History Limitations: Reports: Altered Mental Status - History of Present Illness INITIAL COMMENTS - FREE TEXT/NARRATIVE: HISTORY AND PHYSICAL: History of present illness: Patient is a 53-year-old male presents to the ED today with concern that there are denies any bugs in his couch at home. Patient states over the past month this mouse and bugs have been calling for him as he is watching TV. Patient states today he started to rip open the couch and had 9 out of 10 chest pain. Patient states he believes the couch is releasing hallucinogens and toxins causing his chest pain. Patient states he does routinely drink alcohol and is unsure how many per day he drinks but states he does drink every day. Patient states he recently ran out of money and only has $6 to his name. Patient denies fever, chills, shortness of breath, or cough. Denies headache, neck stiff ness, change in vision, syncope, or near syncope. Denies nausea, vomiting, abdominal pain, diarrhea, constipation, or dysuria. Has not noted any blood in urine or stool. Patient has been eating and drinking appropriately. Patient has a history of pancreatitis and liver cirrhosis. Review of systems: As per history of present illness and below otherwise all systems reviewed and negative. Past medical history: As per history of present illness and as reviewed below otherwise noncontributory. Surgical history: As per history of present illness and as reviewed below otherwise noncontributory. Social history: See social history for further information Family history: As per history of present illness and as reviewed below otherwise noncontributory. Physical exam: General: Patient is alert, and in no acute distress. Patient sitting comfortably on exam table. He does express visual hallucinations of mice on him while in ED. He appears older than stated age and chronically ill appearing. HEENT: Atraumatic, normocephalic, pupils equal and reactive bilaterally, negative for conjunctival pallor or scleral icterus, mucous membranes moist, TMs normal bilaterally, throat clear, neck supple, nontender, trachea midline. No drooling or trismus noted. No meningeal signs. No hot potato voice noted. Lungs: Clear to auscultation, breath sounds equal bilaterally, chest nontender. Heart: S1S2, regular rate and rhythm without overt murmur Abdomen: Soft, nondistended, nontender. Negative for masses or hepatosplenomegaly. Negative for costovertebral tenderness. Pelvis: Stable nontender. Genitourinary: Deferred. Rectal: Deferred. Skin: Intact, warm, dry. No lesions or rashes noted. Extremities: Atraumatic, negative for cords or calf pain. Neurovascular unremarkable. Neuro: Awake, alert. Cranial nerves II through XII unremarkable. Cerebellum unremarkable. Motor and sensory unremarkable throughout. Exam nonfocal. Notes: Dr. Babin is directly involved in patients care. Dr. Aguiar was consulted on patient and has come in directly to see patient. Will admit to observation. Voices understanding and is agreeable to plan of care. Denies any further questions or concerns at this time. Diagnostics: CBC, CMP, UA, EKG, troponin, chest x-ray, ammonia, urine drung, etoh, RUQ US Therapeutics: Banana bag, Ativan, Rocephin Impression: Altered mental status / hallucination Urinary tract infection Cannot r/o ETOH withdrawal Hyperbilirubinemia Plan: 1. Admit to observation to Dr. Aguiar Definitive disposition and diagnosis as appropriate pending reevaluation and review of above. - Related Data Allergies Allergy/AdvReac Type Severity Reaction Status Date / Time No Known Allergies Allergy Verified 11/19/18 16:13 Home Meds: Home Meds . [No Known Home Meds] 11/19/18 [History] Past Medical History HEENT History: Reports: Impaired Vision, Other (See Below) Other HEENT History: wears glasses Cardiovascular History: Reports: None Respiratory History: Reports: Asthma, Other (See Below) Other Respiratory History: asthma as a child Gastrointestinal History: Reports: Chronic Diarrhea Genitourinary History: Reports: Other (See Below) Other Genitourinary History: difficulty urinating Musculoskeletal History: Reports: None Neurological History: Reports: None Psychiatric History: Reports: None Endocrine/Metabolic History: Reports: None Hematologic History: Reports: None Immunologic History: Reports: None Oncologic (Cancer) History: Reports: None Dermatologic History: Reports: None - Infectious Disease History Infectious Disease History: Reports: None - Past Surgical History Head Surgeries/Procedures: Reports: None HEENT Surgical History: Reports: None Cardiovascular Surgical History: Reports: None GI Surgical History: Reports: Appendectomy, Colonoscopy Male Surgical History: Reports: None Endocrine Surgical History: Reports: None Neurological Surgical History: Reports: None Musculoskeletal Surgical History: Reports: None Oncologic Surgical History: Reports: None Dermatological Surgical History: Reports: Other (See Below) Social & Family History - Family History Family Medical History: Noncontributory - Tobacco Use Smoking Status *Q: Current Every Day Smoker Years of Tobacco use: 40 Packs/Tins Daily: 1 - Caffeine Use Caffeine Use: Reports: None Caffeine Use Comment: occ energy drink - Recreational Drug Use Recreational Drug Use: No ED ROS GENERAL - Review of Systems Review Of Systems: ROS reveals no pertinent complaints other than HPI. ED EXAM, GENERAL - Physical Exam Exam: See Below (see dictation) Course - Vital Signs Last Recorded V/S: Last Vital Signs Temp 36.1 C 11/19/18 17:33 Pulse 99 11/19/18 17:33 Resp 16 11/19/18 17:33 BP 92/71 11/19/18 17:33 Pulse Ox 95 11/19/18 17:33 - Orders/Labs/Meds Orders: Active Orders 24 hr Category Date Time Status Admission Status [Patient Status] [ADT] Stat ADT 11/19/18 18:47 Ordered EKG Documentation Completion [RC] STAT Care 11/19/18 16:38 Active Abdomen Ltd [US] Stat Exams 11/19/18 18:36 Ordered CULTURE URINE [RM] Stat Lab 11/19/18 16:38 Received MVI, Adult with Vitamin K [Infuvite Adult] 10 ml Med 11/19/18 16:43 Active Thiamine [Vitamin B-1] 100 mg Folic Acid 1 mg Sodium Chloride 0.9% [Normal Saline] 1,000 ml IV ONETIME cefTRIAXone [Rocephin in Dextrose,Iso-Osm 1 GM/50 ML] 1 Med 11/19/18 18:22 Active gm Premix Bag 1 bag IV ONETIME Medication Orders Multivitamins/Minerals 10 ml/Thiamine HCl 100 mg/ Folic Acid 1 mg/ Sodium Chloride 1,011.2 mls @ 125 mls/hr IV ONETIME ONE Stop: 11/20/18 00:48 Last Admin: 11/19/18 17:30 Dose: 125 mls/hr Ceftriaxone Sodium/Dextrose 1 (gm/ Premix) 50 mls @ 100 mls/hr IV ONETIME ONE Stop: 11/19/18 18:51 Last Admin: 11/19/18 18:40 Dose: 100 mls/hr Labs: Laboratory Tests 11/19/18 11/19/18 11/19/18 Range/Units 16:38 16:43 16:48 WBC 9.68 (4.0-11.0) K/uL RBC 3.71 L (4.50-5.90) M/uL Hgb 13.8 (13.0-17.0) g/dL Hct 40.2 (38.0-50.0) % MCV 108.4 H (80.0-98.0) fL MCH 37.2 H (27.0-32.0) pg MCHC 34.3 (31.0-37.0) g/dL RDW Std Deviation 57.0 (28.0-62.0) fl RDW Coeff of Charli 14 (11.0-15.0) % Plt Count 124 L (150-400) K/uL MPV 9.70 (7.40-12.00) fL Neut % (Auto) 68.6 (48.0-80.0) % Lymph % (Auto) 18.4 (16.0-40.0) % Boyle % (Auto) 12.5 (0.0-15.0) % Eos % (Auto) 0.4 (0.0-7.0) % Baso % (Auto) 0.1 (0.0-1.5) % Neut # (Auto) 6.6 H (1.4-5.7) K/uL Lymph # (Auto) 1.8 (0.6-2.4) K/uL Boyle # (Auto) 1.2 H (0.0-0.8) K/uL Eos # (Auto) 0.0 (0.0-0.7) K/uL Baso # (Auto) 0.0 (0.0-0.1) K/uL Nucleated RBC % 0.0 /100WBC Nucleated RBCs # 0 K/uL INR Sodium (136-148) mmol/L Potassium (3.5-5.1) mmol/L Chloride (98-107) mmol/L Carbon Dioxide (21.0-32.0) mmol/L BUN (7.0-18.0) mg/dL Creatinine (0.8-1.3) mg/dL Est Cr Clr Drug Dosing mL/min Estimated GFR (MDRD) ml/min Glucose (74-106) mg/dL Calcium (8.5-10.1) mg/dL Total Bilirubin (0.2-1.0) mg/dL AST (15-37) IU/L ALT (14-63) IU/L Alkaline Phosphatase (46-116) U/L Ammonia (19-54) ug/dL Troponin I (0.000-0.056) ng/mL Total Protein (6.4-8.2) g/dL Albumin (3.4-5.0) g/dL Globulin (2.6-4.0) g/dL Albumin/Globulin Ratio (0.9-1.6) Urine Color ORANGE Urine Appearance CLEAR Urine pH 5.5 (5.0-8.0) Ur Specific Hudson 1.020 (1.001-1.035) Urine Protein 100 H (NEGATIVE) mg/dL Urine Glucose (UA) NEGATIVE (NEGATIVE) mg/dL Urine Ketones 15 H (NEGATIVE) mg/dL Urine Occult Blood NEGATIVE (NEGATIVE) Urine Nitrite POSITIVE H (NEGATIVE) Urine Bilirubin LARGE H (NEGATIVE) Urine Ictotest NEGATIVE Urine Urobilinogen 4.0 H (<2.0) EU/dL Ur Leukocyte Esterase NEGATIVE (NEGATIVE) Urine RBC 1-3 (0-2/HPF) Urine WBC 8-10 (0-5/HPF) Ur Epithelial Cells MODERATE (NONE-FEW) Calcium Oxalate Crystal RARE (NEGATIVE) Urine Bacteria FEW (NEGATIVE) Hyaline Casts 3-5 (0-2/LPF) Urine Mucus MODERATE (NONE-MOD) Urine Opiates Screen NEGATIVE (NEGATIVE) Ur Oxycodone Screen NEGATIVE (NEGATIVE) Urine Methadone Screen NEGATIVE (NEGATIVE) Ur Barbiturates Screen NEGATIVE (NEGATIVE) Ur Phencyclidine Scrn NEGATIVE (NEGATIVE) Ur Amphetamine Screen NEGATIVE (NEGATIVE) U Methamphetamines Scrn NEGATIVE (NEGATIVE) U Benzodiazepines Scrn NEGATIVE (NEGATIVE) U Cocaine Metab Screen NEGATIVE (NEGATIVE) U Marijuana (THC) Screen NEGATIVE (NEGATIVE) Ethyl Alcohol mg/dL 11/19/18 11/19/18 11/19/18 Range/Units 16:48 16:48 16:48 WBC (4.0-11.0) K/uL RBC (4.50-5.90) M/uL Hgb (13.0-17.0) g/dL Hct (38.0-50.0) % MCV (80.0-98.0) fL MCH (27.0-32.0) pg MCHC (31.0-37.0) g/dL RDW Std Deviation (28.0-62.0) fl RDW Coeff of Charli (11.0-15.0) % Plt Count (150-400) K/uL MPV (7.40-12.00) fL Neut % (Auto) (48.0-80.0) % Lymph % (Auto) (16.0-40.0) % Boyle % (Auto) (0.0-15.0) % Eos % (Auto) (0.0-7.0) % Baso % (Auto) (0.0-1.5) % Neut # (Auto) (1.4-5.7) K/uL Lymph # (Auto) (0.6-2.4) K/uL Boyle # (Auto) (0.0-0.8) K/uL Eos # (Auto) (0.0-0.7) K/uL Baso # (Auto) (0.0-0.1) K/uL Nucleated RBC % /100WBC Nucleated RBCs # K/uL INR 1.11 Sodium 137 (136-148) mmol/L Potassium 3.2 L (3.5-5.1) mmol/L Chloride 100 (98-107) mmol/L Carbon Dioxide 21.4 (21.0-32.0) mmol/L BUN 10 (7.0-18.0) mg/dL Creatinine 0.8 (0.8-1.3) mg/dL Est Cr Clr Drug Dosing 102.77 mL/min Estimated GFR (MDRD) > 60.0 ml/min Glucose 124 H (74-106) mg/dL Calcium 9.0 (8.5-10.1) mg/dL Total Bilirubin 1.4 H (0.2-1.0) mg/dL AST 63 H (15-37) IU/L ALT 29 (14-63) IU/L Alkaline Phosphatase 299 H (46-116) U/L Ammonia 31 (19-54) ug/dL Troponin I < 0.050 (0.000-0.056) ng/mL Total Protein 8.3 H (6.4-8.2) g/dL Albumin 3.3 L (3.4-5.0) g/dL Globulin 5.0 H (2.6-4.0) g/dL Albumin/Globulin Ratio 0.7 L (0.9-1.6) Urine Color Urine Appearance Urine pH (5.0-8.0) Ur Specific Hudson (1.001-1.035) Urine Protein (NEGATIVE) mg/dL Urine Glucose (UA) (NEGATIVE) mg/dL Urine Ketones (NEGATIVE) mg/dL Urine Occult Blood (NEGATIVE) Urine Nitrite (NEGATIVE) Urine Bilirubin (NEGATIVE) Urine Ictotest Urine Urobilinogen (<2.0) EU/dL Ur Leukocyte Esterase (NEGATIVE) Urine RBC (0-2/HPF) Urine WBC (0-5/HPF) Ur Epithelial Cells (NONE-FEW) Calcium Oxalate Crystal (NEGATIVE) Urine Bacteria (NEGATIVE) Hyaline Casts (0-2/LPF) Urine Mucus (NONE-MOD) Urine Opiates Screen (NEGATIVE) Ur Oxycodone Screen (NEGATIVE) Urine Methadone Screen (NEGATIVE) Ur Barbiturates Screen (NEGATIVE) Ur Phencyclidine Scrn (NEGATIVE) Ur Amphetamine Screen (NEGATIVE) U Methamphetamines Scrn (NEGATIVE) U Benzodiazepines Scrn (NEGATIVE) U Cocaine Metab Screen (NEGATIVE) U Marijuana (THC) Screen (NEGATIVE) Ethyl Alcohol <3 mg/dL Meds: Medications Generic Name Dose Route Start Last Admin Trade Name Freq PRN Reason Stop Dose Admin Multivitamins/Minerals 10 ml/ 1,011.2 mls @ 125 mls/hr 11/19/18 16:43 17:30 Thiamine HCl 100 mg/ Folic IV 11/20/18 00:48 125 mls/hr Acid 1 mg/ Sodium Chloride ONETIME ONE Administration Ceftriaxone Sodium/Dextrose 1 50 mls @ 100 mls/hr 11/19/18 18:22 11/19/18 18: 40 gm/ Premix IV 11/19/18 18:51 100 mls/hr ONETIME ONE Administration Discontinued Medications Generic Name Dose Route Start Last Admin Trade Name Freq PRN Reason Stop Dose Admin Ceftriaxone Sodium 1 gm 11/19/18 18:12 11/19/18 18:22 Rocephin IM 11/19/18 18:13 Not Given ONETIME ONE Lorazepam 1 mg 11/19/18 16:43 11/19/18 17:30 Ativan IVPUSH 11/19/18 16:44 1 mg ONETIME ONE Administration Departure - Departure Time of Disposition: 18:50 Disposition: Refer to Observation Clinical Impression: Hyperbilirubinemia, Hallucination Altered mental status, unspecified Qualifiers: Altered mental status type: unspecified Qualified Code(s): R41.82 - Altered mental status, unspecified Urinary tract infection Qualifiers: Urinary tract infection type: acute cystitis Hematuria presence: with hematuria Qualified Code(s): N30.01 - Acute cystitis with hematuria - Discharge Information Referrals: PCP,Unknown [Primary Care Provider] - Forms: ED Department Discharge - My Orders Last 24 Hours: My Active Orders 11/19/18 16:38 EKG Documentation Completion [RC] STAT CULTURE URINE [RM] Stat 11/19/18 16:43 MVI, Adult with Vitamin K [Infuvite Adult] 10 ml Thiamine [Vitamin B-1] 100 mg Folic Acid 1 mg Sodium Chloride 0.9% [Normal Saline] 1,000 ml IV ONETIME 11/19/18 18:22 cefTRIAXone [Rocephin in Dextrose,Iso-Osm 1 GM/50 ML] 1 gm Premix Bag 1 bag IV ONETIME 11/19/18 18:36 Abdomen Ltd [US] Stat 11/19/18 18:47 Admission Status [Patient Status] [ADT] Stat - Assessment/Plan Last 24 Hours: My Active Orders 11/19/18 16:38 EKG Documentation Completion [RC] STAT CULTURE URINE [RM] Stat 11/19/18 16:43 MVI, Adult with Vitamin K [Infuvite Adult] 10 ml Thiamine [Vitamin B-1] 100 mg Folic Acid 1 mg Sodium Chloride 0.9% [Normal Saline] 1,000 ml IV ONETIME 11/19/18 18:22 cefTRIAXone [Rocephin in Dextrose,Iso-Osm 1 GM/50 ML] 1 gm Premix Bag 1 bag IV ONETIME 11/19/18 18:36 Abdomen Ltd [US] Stat 11/19/18 18:47 Admission Status [Patient Status] [ADT] Stat
[2018-11-19 17:42] LABS: CHLORIDE,CL 100 mmol/L (98-107); SODIUM,NA 137 mmol/L (136-148)
--- NOTE | 2018-11-19 18:08 | CR ---
Indication: Chest pain. Weakness. Technique: A single AP portable view of the chest was obtained. Comparison: August 14, 2018. Findings: The heart is normal in size. The lungs are clear. No infiltrate, pleural effusion, or pneumothorax is identified. Impression: No acute cardiopulmonary process. Dictated by Nancy Sánchez MD @ Nov 19 2018 6:07PM Signed by Dr. Nancy Sánchez @ Nov 19 2018 6:07PM
--- NOTE | 2018-11-19 18:10 | CT ---
INDICATION: Head pain. COMPARISON: None. TECHNIQUE: [place] CT of the head without contrast. FINDINGS: Mild generalized cerebral volume loss. No acute intracranial hemorrhage, acute infarct, focal edema, mass effect, or fracture. No midline shift. No abnormal ventricular dilatation. Normal calvarium and skull base. Visualized paranasal sinuses and mastoid air cells are clear. Visualized orbits are unremarkable. IMPRESSION: 1. No acute intracranial abnormality. 2. Mild generalized cerebral volume loss. Please note that all CT scans at this facility use dose modulation, iterative reconstruction, and/or weight-based dosing when appropriate to reduce radiation dose to as low as reasonably achievable. Dictated by Aron Alas MD @ Nov 19 2018 6:08PM Signed by Dr. Aron Alas @ Nov 19 2018 6:09PM
[2018-11-19] MEDS ORDERED: cefTRIAXone 1 GM Vial IM ONE (18:12)
[2018-11-19] MEDS ORDERED: cefTRIAXone 1 GM in Premix Bag 1 BAG IV ONE (18:22)
[2018-11-19] MEDS ORDERED: LORazepam 2 MG/ML SDV IV PRN (18:50)
--- NOTE | 2018-11-19 18:58 | PCM.HP ---
H&P History of Present Illness - General Date of Service: 11/19/18 Admit Problem/Dx: Admission Diagnosis/Problem Admission Diagnosis/Problem Altered mental status - History of Present Illness Initial Comments - Free Text/Narative: 53 yo male with pmh ETOH pancreatitis and liver cirrhosis who presents to the ED with complaint of fatigue and generalized weakness. Patient also reports at home he can feel mice eating the foam of his couch. They also spray a fine film on his skin and glasses and throughout the air. When he disrupts the film the mice get angry. He said a mouse elian fell out of his clothes in the exam room. He then proceeded to show me the film as he was grasping the air. He denies drinking any alcohol for the past two weeks. - Related Data Allergies/Adverse Reactions: Allergies Allergy/AdvReac Type Severity Reaction Status Date / Time No Known Allergies Allergy Verified 11/19/18 16:13 Home Medications: Home Meds . [No Known Home Meds] 11/19/18 [History] Past Medical History HEENT History: Reports: Impaired Vision, Other (See Below) Other HEENT History: wears glasses Cardiovascular History: Reports: None Respiratory History: Reports: Asthma, Other (See Below) Other Respiratory History: asthma as a child Gastrointestinal History: Reports: Chronic Diarrhea Genitourinary History: Reports: Other (See Below) Other Genitourinary History: difficulty urinating Musculoskeletal History: Reports: None Neurological History: Reports: None Psychiatric History: Reports: None Endocrine/Metabolic History: Reports: None Hematologic History: Reports: None Immunologic History: Reports: None Oncologic (Cancer) History: Reports: None Dermatologic History: Reports: None - Infectious Disease History Infectious Disease History: Reports: None - Past Surgical History Head Surgeries/Procedures: Reports: None HEENT Surgical History: Reports: None Cardiovascular Surgical History: Reports: None GI Surgical History: Reports: Appendectomy, Colonoscopy Male Surgical History: Reports: None Endocrine Surgical History: Reports: None Neurological Surgical History: Reports: None Musculoskeletal Surgical History: Reports: None Oncologic Surgical History: Reports: None Dermatological Surgical History: Reports: Other (See Below) Social & Family History - Family History Family Medical History: Noncontributory - Tobacco Use Smoking Status *Q: Current Every Day Smoker Years of Tobacco use: 40 Packs/Tins Daily: 1 - Caffeine Use Caffeine Use: Reports: None Caffeine Use Comment: occ energy drink - Recreational Drug Use Recreational Drug Use: No H&P Review of Systems - Review of Systems: Review Of Systems: ROS reveals no pertinent complaints other than HPI. Exam - Exam Exam: See Below - Vital Signs Vital Signs: Last Vital Signs Temp 36.1 C 11/19/18 17:33 Pulse 99 11/19/18 17:33 Resp 16 11/19/18 17:33 BP 92/71 11/19/18 17:33 Pulse Ox 95 11/19/18 17:33 Weight: 68.039 kg - Exam General: Oriented, Cooperative HEENT: Mucosa Moist & [place] Neck: Supple, Trachea Midline Lungs: Clear to Auscultation, Normal Respiratory Effort Cardiovascular: Regular Rate, Regular Rhythm GI/Abdominal Exam: Normal Bowel Sounds, Soft, Non-Tender Extremities: Non-Tender, No Pedal Edema Skin: Warm, Dry, Intact Neurological: Cranial Nerves Intact, Reflexes Equal Bilateral Neuro Extensive - Mental Status: Alert, Oriented x3, Other (difficulty with subtration and spellng world backwords,) - Patient Data Lab Results Last 24 hrs: Laboratory Results - last 24 hr 11/19/18 11/19/18 11/19/18 Range/Units 16:38 16:43 16:48 WBC 9.68 (4.0-11.0) K/uL RBC 3.71 L (4.50-5.90) M/uL Hgb 13.8 (13.0-17.0) g/dL Hct 40.2 (38.0-50.0) % MCV 108.4 H (80.0-98.0) fL MCH 37.2 H (27.0-32.0) pg MCHC 34.3 (31.0-37.0) g/dL RDW Std Deviation 57.0 (28.0-62.0) fl RDW Coeff of Charli 14 (11.0-15.0) % Plt Count 124 L (150-400) K/uL MPV 9.70 (7.40-12.00) fL Neut % (Auto) 68.6 (48.0-80.0) % Lymph % (Auto) 18.4 (16.0-40.0) % [place] % (Auto) 12.5 (0.0-15.0) % Eos % (Auto) 0.4 (0.0-7.0) % Baso % (Auto) 0.1 (0.0-1.5) % Neut # (Auto) 6.6 H (1.4-5.7) K/uL Lymph # (Auto) 1.8 (0.6-2.4) K/uL [place] # (Auto) 1.2 H (0.0-0.8) K/uL Eos # (Auto) 0.0 (0.0-0.7) K/uL Baso # (Auto) 0.0 (0.0-0.1) K/uL Nucleated RBC % 0.0 /100WBC Nucleated RBCs # 0 K/uL INR Sodium (136-148) mmol/L Potassium (3.5-5.1) mmol/L Chloride (98-107) mmol/L Carbon Dioxide (21.0-32.0) mmol/L BUN (7.0-18.0) mg/dL Creatinine (0.8-1.3) mg/dL Est Cr Clr Drug Dosing mL/min Estimated GFR (MDRD) ml/min Glucose (74-106) mg/dL Calcium (8.5-10.1) mg/dL Total Bilirubin (0.2-1.0) mg/dL AST (15-37) IU/L ALT (14-63) IU/L Alkaline Phosphatase (46-116) U/L Ammonia (19-54) ug/dL Troponin I (0.000-0.056) ng/mL Total Protein (6.4-8.2) g/dL Albumin (3.4-5.0) g/dL Globulin (2.6-4.0) g/dL Albumin/Globulin Ratio (0.9-1.6) Urine Color ORANGE Urine Appearance CLEAR Urine pH 5.5 (5.0-8.0) Ur Specific [place] 1.020 (1.001-1.035) Urine Protein 100 H (NEGATIVE) mg/dL Urine Glucose (UA) NEGATIVE (NEGATIVE) mg/dL Urine Ketones 15 H (NEGATIVE) mg/dL Urine Occult Blood NEGATIVE (NEGATIVE) Urine Nitrite POSITIVE H (NEGATIVE) Urine Bilirubin LARGE H (NEGATIVE) Urine Ictotest NEGATIVE Urine Urobilinogen 4.0 H (<2.0) EU/dL Ur Leukocyte Esterase NEGATIVE (NEGATIVE) Urine RBC 1-3 (0-2/HPF) Urine WBC 8-10 (0-5/HPF) Ur Epithelial Cells MODERATE (NONE-FEW) Calcium Oxalate Crystal RARE (NEGATIVE) Urine Bacteria FEW (NEGATIVE) Hyaline Casts 3-5 (0-2/LPF) Urine Mucus MODERATE (NONE-MOD) Urine Opiates Screen NEGATIVE (NEGATIVE) Ur Oxycodone Screen NEGATIVE (NEGATIVE) Urine Methadone Screen NEGATIVE (NEGATIVE) Ur Barbiturates Screen NEGATIVE (NEGATIVE) Ur Phencyclidine Scrn NEGATIVE (NEGATIVE) Ur Amphetamine Screen NEGATIVE (NEGATIVE) U Methamphetamines Scrn NEGATIVE (NEGATIVE) U Benzodiazepines Scrn NEGATIVE (NEGATIVE) U Cocaine Metab Screen NEGATIVE (NEGATIVE) U Marijuana (THC) Screen NEGATIVE (NEGATIVE) Ethyl Alcohol mg/dL 11/19/18 11/19/18 11/19/18 Range/Units 16:48 16:48 16:48 WBC (4.0-11.0) K/uL RBC (4.50-5.90) M/uL Hgb (13.0-17.0) g/dL Hct (38.0-50.0) % MCV (80.0-98.0) fL MCH (27.0-32.0) pg MCHC (31.0-37.0) g/dL RDW Std Deviation (28.0-62.0) fl RDW Coeff of Charli (11.0-15.0) % Plt Count (150-400) K/uL MPV (7.40-12.00) fL Neut % (Auto) (48.0-80.0) % Lymph % (Auto) (16.0-40.0) % [place] % (Auto) (0.0-15.0) % Eos % (Auto) (0.0-7.0) % Baso % (Auto) (0.0-1.5) % Neut # (Auto) (1.4-5.7) K/uL Lymph # (Auto) (0.6-2.4) K/uL [place] # (Auto) (0.0-0.8) K/uL Eos # (Auto) (0.0-0.7) K/uL Baso # (Auto) (0.0-0.1) K/uL Nucleated RBC % /100WBC Nucleated RBCs # K/uL INR 1.11 Sodium 137 (136-148) mmol/L Potassium 3.2 L (3.5-5.1) mmol/L Chloride 100 (98-107) mmol/L Carbon Dioxide 21.4 (21.0-32.0) mmol/L BUN 10 (7.0-18.0) mg/dL Creatinine 0.8 (0.8-1.3) mg/dL Est Cr Clr Drug Dosing 102.77 mL/min Estimated GFR (MDRD) > 60.0 ml/min Glucose 124 H (74-106) mg/dL Calcium 9.0 (8.5-10.1) mg/dL Total Bilirubin 1.4 H (0.2-1.0) mg/dL AST 63 H (15-37) IU/L ALT 29 (14-63) IU/L Alkaline Phosphatase 299 H (46-116) U/L Ammonia 31 (19-54) ug/dL Troponin I < 0.050 (0.000-0.056) ng/mL Total Protein 8.3 H (6.4-8.2) g/dL Albumin 3.3 L (3.4-5.0) g/dL Globulin 5.0 H (2.6-4.0) g/dL Albumin/Globulin Ratio 0.7 L (0.9-1.6) Urine Color Urine Appearance Urine pH (5.0-8.0) Ur Specific [place] (1.001-1.035) Urine Protein (NEGATIVE) mg/dL Urine Glucose (UA) (NEGATIVE) mg/dL Urine Ketones (NEGATIVE) mg/dL Urine Occult Blood (NEGATIVE) Urine Nitrite (NEGATIVE) Urine Bilirubin (NEGATIVE) Urine Ictotest Urine Urobilinogen (<2.0) EU/dL Ur Leukocyte Esterase (NEGATIVE) Urine RBC (0-2/HPF) Urine WBC (0-5/HPF) Ur Epithelial Cells (NONE-FEW) Calcium Oxalate Crystal (NEGATIVE) Urine Bacteria (NEGATIVE) Hyaline Casts (0-2/LPF) Urine Mucus (NONE-MOD) Urine Opiates Screen (NEGATIVE) Ur Oxycodone Screen (NEGATIVE) Urine Methadone Screen (NEGATIVE) Ur Barbiturates Screen (NEGATIVE) Ur Phencyclidine Scrn (NEGATIVE) Ur Amphetamine Screen (NEGATIVE) U Methamphetamines Scrn (NEGATIVE) U Benzodiazepines Scrn (NEGATIVE) U Cocaine Metab Screen (NEGATIVE) U Marijuana (THC) Screen (NEGATIVE) Ethyl Alcohol <3 mg/dL Result Diagrams: 11/20/18 06:13 11/20/18 06:13 Problem List Initiated/Reviewed/Updated: Yes Orders Last 24hrs: Active Orders 24 hr Category Date Time Status Admission Status [Patient Status] [ADT] Stat ADT 11/19/18 18:47 Active Antiembolic Devices [RC] PER UNIT ROUTINE Care 11/19/18 18:51 Ordered EKG Documentation Completion [RC] STAT Care 11/19/18 16:38 Active Oxygen Therapy [RC] PRN Care 11/19/18 18:50 Ordered Up ad Gladys [RC] ASDIRECTED Care 11/19/18 18:50 Ordered VTE/DVT Education [RC] PER UNIT ROUTINE Care 11/19/18 18:50 Ordered Vital Signs [RC] Q4H Care 11/19/18 18:50 Ordered Regular Diet [DIET] Diet 11/19/18 Breakfast Ordered Abdomen Ltd [US] Stat Exams 11/19/18 18:36 Ordered CBC W/O DIFF,HEMOGRAM [HEME] AM Lab 11/20/18 05:11 Ordered CBC W/O DIFF,HEMOGRAM [HEME] AM Lab 11/21/18 05:11 Ordered COMPREHENSIVE METABOLIC PN,CMP [CHEM] AM Lab 11/20/18 05:11 Ordered COMPREHENSIVE METABOLIC PN,CMP [CHEM] AM Lab 11/21/18 05:11 Ordered CULTURE URINE [RM] Stat Lab 11/19/18 16:38 Received LORazepam [Ativan] Med 11/19/18 18:50 Ordered See Protocol IV Q6H PRN MVI, Adult with Vitamin K [Infuvite Adult] 10 ml Med 11/19/18 16:43 Active Thiamine [Vitamin B-1] 100 mg Folic Acid 1 mg Sodium Chloride 0.9% [Normal Saline] 1,000 ml IV ONETIME Pantoprazole [ProTONIX IV] Med 11/19/18 19:00 Ordered 40 mg IV Q24H cefTRIAXone [Rocephin] Med 11/20/18 19:00 Ordered 1 gm IVPUSH Q24H Sequential Compression Device [OM.PC] Per Unit Routine Oth 11/19/18 18:50 Ordered Resuscitation Status Routine Resus Stat 11/19/18 18:50 Ordered Medication Orders Ceftriaxone Sodium (Rocephin) 1 gm IVPUSH Q24H MARIZA Multivitamins/Minerals 10 ml/Thiamine HCl 100 mg/ Folic Acid 1 mg/ Sodium Chloride 1,011.2 mls @ 125 mls/hr IV ONETIME ONE Stop: 11/20/18 00:48 Last Admin: 11/19/18 17:30 Dose: 125 mls/hr Lorazepam (Ativan) 0 mg IV Q6H PRN; Protocol PRN Reason: Agitation Pantoprazole Sodium (Protonix Iv) 40 mg IV Q24H [facility] Assessment/Plan Comment:: 53 yo male admitted for UTI with delerium vs psychosis. We will hydrate with IV fluids, treat with Rocephin and continue to monitor mental status. On the differential would be ETOH withdrawal, or encephalopathy.
[2018-11-19] MEDS ORDERED: Sodium Chloride 0.9% 10 ML SDV IV STA (19:13)
[2018-11-19] MEDS: Pantoprazole 40 MG Vial IV SCH (19:19)
--- NOTE | 2018-11-19 19:56 | US ---
INDICATION: Epigastric pain TECHNIQUE: Ultrasound abdomen limited. Sonographic images of the right upper quadrant were obtained using rangel-scale and color Doppler images. COMPARISON: None FINDINGS: Liver: Normal in size with diffuse fatty infiltration. No masses. No intrahepatic biliary dilatation. Gallbladder: No stones or sludge. Normal wall thickness. No pericholecystic fluid. Common bile duct: 3 mm. Pancreas: Normal. Right kidney: 10.7 cm. Normal echotexture and cortex. No masses, stones, or hydronephrosis. IMPRESSION: Diffuse fatty infiltration of the liver. Sonographically normal gallbladder and common bile duct. Dictated by Wenceslao James MD @ 11/19/2018 7:54:01 PM Dictated by: Wenceslao James MD @ 11/19/2018 19:54:09 (Electronically Signed)
[2018-11-20 07:10] LABS: CHLORIDE,CL 104 mmol/L (98-107); SODIUM,NA 141 mmol/L (136-148)
[2018-11-20] MEDS ORDERED: Potassium Chloride 20 MEQ Tab.ER PO ONE (09:53)
--- NOTE | 2018-11-20 13:39 | PCM.PN ---
- General Info Date of Service: 11/20/18 - Review of Systems Systems Review Comment:: reports mice are trying to poison him - Patient Data Vitals - Most Recent: Last Vital Signs Temp 36.7 C 11/20/18 12:00 Pulse 86 11/20/18 12:00 Resp 18 11/20/18 12:00 BP 135/90 11/20/18 12:00 Pulse Ox 96 11/20/18 12:00 Weight - Most Recent: 68.039 kg I&O - Last 24 Hours: Intake & Output 11/19/18 11/20/18 11/20/18 22:59 06:59 14:59 Intake Total 300 Output Total 400 Balance -100 Lab Results Last 24 Hours: Laboratory Results - last 24 hr 11/19/18 11/19/18 11/19/18 Range/Units 16:38 16:43 16:48 WBC 9.68 (4.0-11.0) K/uL RBC 3.71 L (4.50-5.90) M/uL Hgb 13.8 (13.0-17.0) g/dL Hct 40.2 (38.0-50.0) % MCV 108.4 H (80.0-98.0) fL MCH 37.2 H (27.0-32.0) pg MCHC 34.3 (31.0-37.0) g/dL RDW Std Deviation 57.0 (28.0-62.0) fl RDW Coeff of Charli 14 (11.0-15.0) % Plt Count 124 L (150-400) K/uL MPV 9.70 (7.40-12.00) fL Neut % (Auto) 68.6 (48.0-80.0) % Lymph % (Auto) 18.4 (16.0-40.0) % [place] % (Auto) 12.5 (0.0-15.0) % Eos % (Auto) 0.4 (0.0-7.0) % Baso % (Auto) 0.1 (0.0-1.5) % Neut # (Auto) 6.6 H (1.4-5.7) K/uL Lymph # (Auto) 1.8 (0.6-2.4) K/uL [place] # (Auto) 1.2 H (0.0-0.8) K/uL Eos # (Auto) 0.0 (0.0-0.7) K/uL Baso # (Auto) 0.0 (0.0-0.1) K/uL Nucleated RBC % 0.0 /100WBC Nucleated RBCs # 0 K/uL INR Sodium (136-148) mmol/L Potassium (3.5-5.1) mmol/L Chloride (98-107) mmol/L Carbon Dioxide (21.0-32.0) mmol/L BUN (7.0-18.0) mg/dL Creatinine (0.8-1.3) mg/dL Est Cr Clr Drug Dosing mL/min Estimated GFR (MDRD) ml/min Glucose (74-106) mg/dL Calcium (8.5-10.1) mg/dL Total Bilirubin (0.2-1.0) mg/dL AST (15-37) IU/L ALT (14-63) IU/L Alkaline Phosphatase (46-116) U/L Ammonia (19-54) ug/dL Troponin I (0.000-0.056) ng/mL Total Protein (6.4-8.2) g/dL Albumin (3.4-5.0) g/dL Globulin (2.6-4.0) g/dL Albumin/Globulin Ratio (0.9-1.6) Urine Color ORANGE Urine Appearance CLEAR Urine pH 5.5 (5.0-8.0) Ur Specific [place] 1.020 (1.001-1.035) Urine Protein 100 H (NEGATIVE) mg/dL Urine Glucose (UA) NEGATIVE (NEGATIVE) mg/dL Urine Ketones 15 H (NEGATIVE) mg/dL Urine Occult Blood NEGATIVE (NEGATIVE) Urine Nitrite POSITIVE H (NEGATIVE) Urine Bilirubin LARGE H (NEGATIVE) Urine Ictotest NEGATIVE Urine Urobilinogen 4.0 H (<2.0) EU/dL Ur Leukocyte Esterase NEGATIVE (NEGATIVE) Urine RBC 1-3 (0-2/HPF) Urine WBC 8-10 (0-5/HPF) Ur Epithelial Cells MODERATE (NONE-FEW) Calcium Oxalate Crystal RARE (NEGATIVE) Urine Bacteria FEW (NEGATIVE) Hyaline Casts 3-5 (0-2/LPF) Urine Mucus MODERATE (NONE-MOD) Urine Opiates Screen NEGATIVE (NEGATIVE) Ur Oxycodone Screen NEGATIVE (NEGATIVE) Urine Methadone Screen NEGATIVE (NEGATIVE) Ur Barbiturates Screen NEGATIVE (NEGATIVE) Ur Phencyclidine Scrn NEGATIVE (NEGATIVE) Ur Amphetamine Screen NEGATIVE (NEGATIVE) U Methamphetamines Scrn NEGATIVE (NEGATIVE) U Benzodiazepines Scrn NEGATIVE (NEGATIVE) U Cocaine Metab Screen NEGATIVE (NEGATIVE) U Marijuana (THC) Screen NEGATIVE (NEGATIVE) Ethyl Alcohol mg/dL 11/19/18 11/19/18 11/19/18 Range/Units 16:48 16:48 16:48 WBC (4.0-11.0) K/uL RBC (4.50-5.90) M/uL Hgb (13.0-17.0) g/dL Hct (38.0-50.0) % MCV (80.0-98.0) fL MCH (27.0-32.0) pg MCHC (31.0-37.0) g/dL RDW Std Deviation (28.0-62.0) fl RDW Coeff of Charli (11.0-15.0) % Plt Count (150-400) K/uL MPV (7.40-12.00) fL Neut % (Auto) (48.0-80.0) % Lymph % (Auto) (16.0-40.0) % [place] % (Auto) (0.0-15.0) % Eos % (Auto) (0.0-7.0) % Baso % (Auto) (0.0-1.5) % Neut # (Auto) (1.4-5.7) K/uL Lymph # (Auto) (0.6-2.4) K/uL [place] # (Auto) (0.0-0.8) K/uL Eos # (Auto) (0.0-0.7) K/uL Baso # (Auto) (0.0-0.1) K/uL Nucleated RBC % /100WBC Nucleated RBCs # K/uL INR 1.11 Sodium 137 (136-148) mmol/L Potassium 3.2 L (3.5-5.1) mmol/L Chloride 100 (98-107) mmol/L Carbon Dioxide 21.4 (21.0-32.0) mmol/L BUN 10 (7.0-18.0) mg/dL Creatinine 0.8 (0.8-1.3) mg/dL Est Cr Clr Drug Dosing 102.77 mL/min Estimated GFR (MDRD) > 60.0 ml/min Glucose 124 H (74-106) mg/dL Calcium 9.0 (8.5-10.1) mg/dL Total Bilirubin 1.4 H (0.2-1.0) mg/dL AST 63 H (15-37) IU/L ALT 29 (14-63) IU/L Alkaline Phosphatase 299 H (46-116) U/L Ammonia 31 (19-54) ug/dL Troponin I < 0.050 (0.000-0.056) ng/mL Total Protein 8.3 H (6.4-8.2) g/dL Albumin 3.3 L (3.4-5.0) g/dL Globulin 5.0 H (2.6-4.0) g/dL Albumin/Globulin Ratio 0.7 L (0.9-1.6) Urine Color Urine Appearance Urine pH (5.0-8.0) Ur Specific [place] (1.001-1.035) Urine Protein (NEGATIVE) mg/dL Urine Glucose (UA) (NEGATIVE) mg/dL Urine Ketones (NEGATIVE) mg/dL Urine Occult Blood (NEGATIVE) Urine Nitrite (NEGATIVE) Urine Bilirubin (NEGATIVE) Urine Ictotest Urine Urobilinogen (<2.0) EU/dL Ur Leukocyte Esterase (NEGATIVE) Urine RBC (0-2/HPF) Urine WBC (0-5/HPF) Ur Epithelial Cells (NONE-FEW) Calcium Oxalate Crystal (NEGATIVE) Urine Bacteria (NEGATIVE) Hyaline Casts (0-2/LPF) Urine Mucus (NONE-MOD) Urine Opiates Screen (NEGATIVE) Ur Oxycodone Screen (NEGATIVE) Urine Methadone Screen (NEGATIVE) Ur Barbiturates Screen (NEGATIVE) Ur Phencyclidine Scrn (NEGATIVE) Ur Amphetamine Screen (NEGATIVE) U Methamphetamines Scrn (NEGATIVE) U Benzodiazepines Scrn (NEGATIVE) U Cocaine Metab Screen (NEGATIVE) U Marijuana (THC) Screen (NEGATIVE) Ethyl Alcohol <3 mg/dL 11/20/18 11/20/18 Range/Units 06:13 06:13 WBC 8.10 (4.0-11.0) K/uL RBC 3.42 L (4.50-5.90) M/uL Hgb 12.4 L (13.0-17.0) g/dL Hct 37.4 L (38.0-50.0) % MCV 109.4 H (80.0-98.0) fL MCH 36.3 H (27.0-32.0) pg MCHC 33.2 (31.0-37.0) g/dL RDW Std Deviation 58.5 (28.0-62.0) fl RDW Coeff of Charli 15 (11.0-15.0) % Plt Count 118 L (150-400) K/uL MPV 10.00 (7.40-12.00) fL Neut % (Auto) (48.0-80.0) % Lymph % (Auto) (16.0-40.0) % [place] % (Auto) (0.0-15.0) % Eos % (Auto) (0.0-7.0) % Baso % (Auto) (0.0-1.5) % Neut # (Auto) (1.4-5.7) K/uL Lymph # (Auto) (0.6-2.4) K/uL [place] # (Auto) (0.0-0.8) K/uL Eos # (Auto) (0.0-0.7) K/uL Baso # (Auto) (0.0-0.1) K/uL Nucleated RBC % 0.0 /100WBC Nucleated RBCs # 0 K/uL INR Sodium 141 (136-148) mmol/L Potassium 2.9 L (3.5-5.1) mmol/L Chloride 104 (98-107) mmol/L Carbon Dioxide 23.3 (21.0-32.0) mmol/L BUN 9 (7.0-18.0) mg/dL Creatinine 0.6 L (0.8-1.3) mg/dL Est Cr Clr Drug Dosing 133.09 mL/min Estimated GFR (MDRD) > 60.0 ml/min Glucose 99 (74-106) mg/dL Calcium 8.4 L (8.5-10.1) mg/dL Total Bilirubin 1.0 (0.2-1.0) mg/dL AST 61 H (15-37) IU/L ALT 28 (14-63) IU/L Alkaline Phosphatase 247 H (46-116) U/L Ammonia (19-54) ug/dL Troponin I (0.000-0.056) ng/mL Total Protein 6.9 (6.4-8.2) g/dL Albumin 2.7 L (3.4-5.0) g/dL Globulin 4.2 H (2.6-4.0) g/dL Albumin/Globulin Ratio 0.6 L (0.9-1.6) Urine Color Urine Appearance Urine pH (5.0-8.0) Ur Specific [place]night (1.001-1.035) Urine Protein (NEGATIVE) mg/dL Urine Glucose (UA) (NEGATIVE) mg/dL Urine Ketones (NEGATIVE) mg/dL Urine Occult Blood (NEGATIVE) Urine Nitrite (NEGATIVE) Urine Bilirubin (NEGATIVE) Urine Ictotest Urine Urobilinogen (<2.0) EU/dL Ur Leukocyte Esterase (NEGATIVE) Urine RBC (0-2/HPF) Urine WBC (0-5/HPF) Ur Epithelial Cells (NONE-FEW) Calcium Oxalate Crystal (NEGATIVE) Urine Bacteria (NEGATIVE) Hyaline Casts (0-2/LPF) Urine Mucus (NONE-MOD) Urine Opiates Screen (NEGATIVE) Ur Oxycodone Screen (NEGATIVE) Urine Methadone Screen (NEGATIVE) Ur Barbiturates Screen (NEGATIVE) Ur Phencyclidine Scrn (NEGATIVE) Ur Amphetamine Screen (NEGATIVE) U Methamphetamines Scrn (NEGATIVE) U Benzodiazepines Scrn (NEGATIVE) U Cocaine Metab Screen (NEGATIVE) U Marijuana (THC) Screen (NEGATIVE) Ethyl Alcohol mg/dL Med Orders - Current: Current Medications Ceftriaxone Sodium/Dextrose 1 (gm/ Premix) 50 mls @ 100 mls/hr IV Q24H MARIZA Lorazepam (Ativan) 0 mg IV Q6H PRN; Protocol PRN Reason: Agitation Pantoprazole Sodium (Protonix Iv) 40 mg IV Q24H [facility] Last Admin: 11/19/18 19:19 Dose: 40 mg Discontinued Medications Ceftriaxone Sodium (Rocephin) 1 gm IM ONETIME ONE Stop: 11/19/18 18:13 Last Admin: 11/19/18 18:22 Dose: Not Given Multivitamins/Minerals 10 ml/Thiamine HCl 100 mg/ Folic Acid 1 mg/ Sodium Chloride 1,011.2 mls @ 125 mls/hr IV ONETIME ONE Stop: 11/20/18 00:48 Last Admin: 11/19/18 17:30 Dose: 125 mls/hr Ceftriaxone Sodium/Dextrose 1 (gm/ Premix) 50 mls @ 100 mls/hr IV ONETIME ONE Stop: 11/19/18 18:51 Last Admin: 11/19/18 18:40 Dose: 100 mls/hr Lorazepam (Ativan) 1 mg IVPUSH ONETIME ONE Stop: 11/19/18 16:44 Last Admin: 11/19/18 17:30 Dose: 1 mg Potassium Chloride (Klor-Con M20) 40 meq PO ONETIME ONE Stop: 11/20/18 09:54 Last Admin: 11/20/18 10:27 Dose: 40 meq Sodium Chloride (Normal Saline) 10 ml IV ONETIME STA Stop: 11/19/18 19:14 Last Admin: 11/19/18 19:19 Dose: 10 ml - Exam General: Cooperative Lungs: Clear to Auscultation, Normal Respiratory Effort Cardiovascular: Regular Rate, Regular Rhythm GI/Abdominal Exam: Normal Bowel Sounds, Soft, Non-Tender Extremities: Non-Tender, No Pedal Edema Skin: Warm, Dry, Intact Neurological: No New Focal Deficit - Problem List Review Problem List Initiated/Reviewed/Updated: Yes - My Orders Last 24 Hours: My Active Orders 11/19/18 18:50 Oxygen Therapy [RC] PRN Up ad Gladys [RC] ASDIRECTED VTE/DVT Education [RC] PER UNIT ROUTINE Vital Signs [RC] Q4H LORazepam [Ativan] See Protocol IV Q6H PRN Sequential Compression Device [OM.PC] Per Unit Routine Resuscitation Status Routine 11/19/18 18:51 Antiembolic Devices [RC] PER UNIT ROUTINE 11/19/18 19:00 Pantoprazole [ProTONIX IV] 40 mg IV Q24H 11/20/18 10:34 CIWAA Assessment [RC] Q4H 11/20/18 18:00 cefTRIAXone [Rocephin in Dextrose,Iso-Osm 1 GM/50 ML] 1 gm Premix Bag 1 bag IV Q24H 11/21/18 05:11 CBC W/O DIFF,HEMOGRAM [HEME] AM COMPREHENSIVE METABOLIC PN,CMP [CHEM] AM - Plan Plan:: 53 yo male admitted with UTI and altered mental status. Treating with Rocephin. I have placed call with Dr. Holloway for Psychiatry consult.
[2018-11-20] MEDS ORDERED: Gadobenate Dimeglumine 529 MG/ML 20 ML SDV IVPUSH STA (13:41)
[2018-11-20] MEDS: Folic Acid 1 MG Tab PO SCH (14:36)
[2018-11-20] MEDS: Thiamine 100 MG Tab PO SCH (14:37)
--- NOTE | 2018-11-20 14:51 | MR ---
EXAMINATION: MRI of the brain with and without contrast. TECHNIQUE: Multiplanar and multisequence imaging of the brain without and following 13 cc of Multihance contrast. HISTORY: Blurred vision. FINDINGS: Cerebral hemispheres and the deep nuclei are without hemorrhage, mass, edema, gliosis, or enhancement. There is moderate generalized atrophy. Mild periventricular white matter changes noted. There is no abnormal diffusion restriction. No extraaxial collections or hemorrhage. The ventricular system is of normal size and configuration without hydrocephalus. The brainstem and cerebellum are without hemorrhage, mass, edema, gliosis, or atrophy. The carotid and basilar artery flow voids are intact. The otomastoid airspaces are clear. No internal auditory canal or cerebellopontine angle masses or enhancement. Mucosal thickening is noted within the right maxillary sinus. The globes, optic nerves, orbital apices, optic chiasm, optic tracts, and visual cortices are unremarkable. The pituitary and sella turcica are unremarkable. No meningeal enhancement. The craniocervical junction is unremarkable. No siderosis or evidence of vascular malformation. The calvarium is intact. IMPRESSION: 1. No intracranial findings. 2. Generalized atrophy and likely early small vessel ischemic changes.
--- NOTE | 2018-11-20 15:26 | PCM.SN ---
- Free Text/Narrative Note: Spoke with Dr Holloway after he complated consultation. Please see his note. He felt patient is likely having mild DTs. He recommended continued CIWAA protocol with Ativan as well as folic acid and thiamine. In addition he recommended adding Haldol 2.5 mg BID PO now and giving that a couple days. He is available for if needed in the next few days. I spoke with Dr Aguiar and updated him on this, he is in agreement with adding Haldol. Ordered to have first dose now.
[2018-11-20] MEDS: Haloperidol 5 MG Tab PO SCH ×2 (16:28→20:54)
[2018-11-20] MEDS ORDERED: cefTRIAXone 1 GM in Premix Bag 1 BAG IV SCH (18:00)
[2018-11-20] MEDS: Pantoprazole 40 MG Vial IV SCH (18:10)
[2018-11-20] MEDS ORDERED: cefTRIAXone 1 GM Vial IVPUSH SCH (19:00)
[2018-11-21 05:32] LABS: CHLORIDE,CL 105 mmol/L (98-107); SODIUM,NA 140 mmol/L (136-148)
--- NOTE | 2018-11-21 08:19 | PCM.PN ---
- General Info Date of Service: 11/21/18 Admission Dx/Problem (Free Text): Admission Diagnosis/Problem Admission Diagnosis/Problem Altered mental status, Alcohol abuse Subjective Update: The patient is a 53-year-old gentleman who was admitted to acute hospitalization on November 19, 2018. This was secondary to his mental confusion and hallucinations. The patient says that his last alcohol drink was 20 days ago. The patient today says that he is doing much better. He is alert. The patient also understands why he is here. The patient has been tolerating his diet. The patient also has denied any pain. Functional Status: Reports: Pain Controlled - Review of Systems General: Reports: No Symptoms HEENT: Reports: No Symptoms Pulmonary: Reports: No Symptoms Cardiovascular: Reports: No Symptoms Gastrointestinal: Reports: No Symptoms Genitourinary: Reports: No Symptoms Musculoskeletal: Reports: No Symptoms Skin: Reports: No Symptoms Neurological: Reports: No Symptoms Psychiatric: Reports: No Symptoms - Patient Data Vitals - Most Recent: Last Vital Signs Temp 35.9 C 11/21/18 07:05 Pulse 72 11/21/18 07:05 Resp 16 11/21/18 07:05 BP 143/93 H 11/21/18 07:05 Pulse Ox 95 11/21/18 07:05 Weight - Most Recent: 68 kg I&O - Last 24 Hours: Intake & Output 11/20/18 11/21/18 11/21/18 22:59 06:59 14:59 Intake Total 1030 Output Total 450 Balance 580 Lab Results Last 24 Hours: Laboratory Results - last 24 hr 11/21/18 11/21/18 Range/Units 05:05 05:05 WBC 6.81 (4.0-11.0) K/uL RBC 3.45 L (4.50-5.90) M/uL Hgb 12.5 L (13.0-17.0) g/dL Hct 37.6 L (38.0-50.0) % MCV 109.0 H (80.0-98.0) fL MCH 36.2 H (27.0-32.0) pg MCHC 33.2 (31.0-37.0) g/dL RDW Std Deviation 58.4 (28.0-62.0) fl RDW Coeff of Charli 15 (11.0-15.0) % Plt Count 137 L (150-400) K/uL MPV 10.00 (7.40-12.00) fL Nucleated RBC % 0.0 /100WBC Nucleated RBCs # 0 K/uL Sodium 140 (136-148) mmol/L Potassium 3.3 L (3.5-5.1) mmol/L Chloride 105 (98-107) mmol/L Carbon Dioxide 26.1 (21.0-32.0) mmol/L BUN 5 L (7.0-18.0) mg/dL Creatinine 0.5 L (0.8-1.3) mg/dL Est Cr Clr Drug Dosing 164.33 mL/min Estimated GFR (MDRD) > 60.0 ml/min Glucose 158 H (74-106) mg/dL Calcium 8.4 L (8.5-10.1) mg/dL Total Bilirubin 0.8 (0.2-1.0) mg/dL AST 52 H (15-37) IU/L ALT 30 (14-63) IU/L Alkaline Phosphatase 224 H (46-116) U/L Total Protein 6.8 (6.4-8.2) g/dL Albumin 2.7 L (3.4-5.0) g/dL Globulin 4.1 H (2.6-4.0) g/dL Albumin/Globulin Ratio 0.7 L (0.9-1.6) Yuriy Results Last 24 Hours: Microbiology 11/19/18 16:38 Urine Culture - Final Urine, Clean Catch No Growth Med Orders - Current: Current Medications Folic Acid (Folic Acid) 1 mg PO DAILY [facility] TO [facility] Last Admin: 11/20/18 14:36 Dose: 1 mg Haloperidol (Haldol) 2.5 mg PO Q12HR [facility] Last Admin: 11/20/18 20:54 Dose: 2.5 mg Ceftriaxone Sodium/Dextrose 1 (gm/ Premix) 50 mls @ 100 mls/hr IV Q24H [facility] Last Admin: 11/20/18 18:11 Dose: 100 mls/hr Lorazepam (Ativan) 0 mg IV Q6H PRN; Protocol PRN Reason: Agitation Pantoprazole Sodium (Protonix Iv) 40 mg IV Q24H [facility] Last Admin: 11/20/18 18:10 Dose: 40 mg Thiamine HCl (Vitamin B-1) 100 mg PO DAILY [facility] Last Admin: 11/20/18 14:37 Dose: 100 mg Discontinued Medications Ceftriaxone Sodium (Rocephin) 1 gm IM ONETIME ONE Stop: 11/19/18 18:13 Last Admin: 11/19/18 18:22 Dose: Not Given Gadobenate Dimeglumine (Multihance) 20 ml IVPUSH ONETIME STA Stop: 11/20/18 13:42 Last Admin: 11/20/18 13:42 Dose: 13 ml Multivitamins/Minerals 10 ml/Thiamine HCl 100 mg/ Folic Acid 1 mg/ Sodium Chloride 1,011.2 mls @ 125 mls/hr IV ONETIME ONE Stop: 11/20/18 00:48 Last Admin: 11/19/18 17:30 Dose: 125 mls/hr Ceftriaxone Sodium/Dextrose 1 (gm/ Premix) 50 mls @ 100 mls/hr IV ONETIME ONE Stop: 11/19/18 18:51 Last Admin: 11/19/18 18:40 Dose: 100 mls/hr Lorazepam (Ativan) 1 mg IVPUSH ONETIME ONE Stop: 11/19/18 16:44 Last Admin: 11/19/18 17:30 Dose: 1 mg Potassium Chloride (Klor-Con M20) 40 meq PO ONETIME ONE Stop: 11/20/18 09:54 Last Admin: 11/20/18 10:27 Dose: 40 meq Sodium Chloride (Normal Saline) 10 ml IV ONETIME STA Stop: 11/19/18 19:14 Last Admin: 11/19/18 19:19 Dose: 10 ml - Exam Quality Assessment: No: Supplemental Oxygen General: Alert, Oriented, Cooperative, No Acute Distress HEENT: Pupils Equal, Pupils Reactive, EOMI, Mucous Membr. Moist/[place] Neck: Supple, Trachea Midline, No JVD Lungs: Clear to Auscultation, Normal Respiratory Effort Cardiovascular: Regular Rate, Regular Rhythm GI/Abdominal Exam: Normal Bowel Sounds, Soft, Non-Tender, No Distention. No: Guarding, Rigid, Rebound (Male) Exam: Deferred Back Exam: Normal Inspection, Full Range of Motion Extremities: Normal Inspection, Normal Range of Motion, No Pedal Edema Skin: Warm, Dry, Intact Neurological: No New Focal Deficit, Normal Gait, Normal Speech, Normal Tone Psy/Mental Status: Alert, Normal Affect, Normal Mood - Problem List & Annotations (1) Altered mental status, unspecified SNOMED Code(s): 179325152 Code(s): R41.82 - ALTERED MENTAL STATUS, UNSPECIFIED Status: Resolved Priority: High Current Visit: Yes Qualifiers: Altered mental status type: transient alteration of awareness Qualified Code(s): R40.4 - Transient alteration of awareness (2) Alcohol abuse SNOMED Code(s): 32205848 Code(s): F10.10 - ALCOHOL ABUSE, UNCOMPLICATED Status: Chronic Priority: High Current Visit: Yes (3) Hepatic cirrhosis SNOMED Code(s): 82216369 Code(s): K74.60 - UNSPECIFIED CIRRHOSIS OF LIVER Status: Chronic Priority : Medium Current Visit: Yes Qualifiers: Hepatic cirrhosis type: alcoholic cirrhosis Ascites presence: without ascites Qualified Code(s): K70.30 - Alcoholic cirrhosis of liver without ascites (4) Hallucination SNOMED Code(s): 7199319 Code(s): R44.3 - HALLUCINATIONS, UNSPECIFIED Status: Resolved Priority: High Current Visit: Yes (5) Hyperbilirubinemia SNOMED Code(s): 97253889 Code(s): E80.6 - OTHER DISORDERS OF BILIRUBIN METABOLISM Status: Resolved Priority: High Current Visit: Yes (6) Tobacco abuse SNOMED Code(s): 749837809 Code(s): Z72.0 - TOBACCO USE Status: Chronic Priority: Medium Current Visit: Yes - Problem List Review Problem List Initiated/Reviewed/Updated: Yes - Plan Plan:: 53 yo male admitted with UTI and altered mental status. Treating with Tony. I have placed call with Dr. Holloway for Psychiatry consult. The patient is a 53-year-old gentleman who had evidence of a urinary tract infection along with altered mental status. He is currently awake alert and oriented to person place and time. The patient also has been encouraged to ambulate. The patient was positive for urinary nitrites but negative for leukocyte esterase and this may been the result of his alcohol abuse. The patient admits to heavy alcohol use and his last use was 20 days ago. The patient will be transitioned to ciprofloxacin 500 mg by mouth twice a day. I've also recommended that the patient refrain from alcohol permanently. The patient will also be maintained on thiamine and folate. The patient should be appropriate for discharge home tomorrow.
[2018-11-21] MEDS: Thiamine 100 MG Tab PO SCH (09:30)
[2018-11-21] MEDS: Folic Acid 1 MG Tab PO SCH (09:30)
[2018-11-21] MEDS: Haloperidol 5 MG Tab PO SCH ×2 (09:31→20:53)
[2018-11-21] MEDS: Nicotine 14 MG/24 Hr Patch TRDERM SCH (14:46)
[2018-11-21] MEDS: Pantoprazole 40 MG Vial IV SCH (19:18)
[2018-11-22 05:31] LABS: CHLORIDE,CL 102 mmol/L (98-107); SODIUM,NA 136 mmol/L (136-148)
--- NOTE | 2018-11-22 07:39 | PCM.DCSUM1 ---
Discharge Summary - Hospital Course HPI Initial Comments: Admitted secondary to altered mental status. Diagnosis: Stroke: No - Discharge Data Discharge Date: 11/22/18 Discharge Disposition: Home, Self-Care 01 Condition: Good - Discharge Diagnosis/Problem(s) (1) Altered mental status, unspecified SNOMED Code(s): 640024359 ICD Code: R41.82 - ALTERED MENTAL STATUS, UNSPECIFIED Status: Resolved Priority: High Qualifiers: Altered mental status type: transient alteration of awareness Qualified Code(s): R40.4 - Transient alteration of awareness (2) Alcohol abuse SNOMED Code(s): 37648518 ICD Code: F10.10 - ALCOHOL ABUSE, UNCOMPLICATED Status: Chronic Priority : High (3) Hepatic cirrhosis SNOMED Code(s): 71336431 ICD Code: K74.60 - UNSPECIFIED CIRRHOSIS OF LIVER Status: Chronic Priority: Medium Qualifiers: Hepatic cirrhosis type: alcoholic cirrhosis Ascites presence: without ascites Qualified Code(s): K70.30 - Alcoholic cirrhosis of liver without ascites (4) Hallucination SNOMED Code(s): 0415169 ICD Code: R44.3 - HALLUCINATIONS, UNSPECIFIED Status: Resolved Priority: High (5) Hyperbilirubinemia SNOMED Code(s): 11690256 ICD Code: E80.6 - OTHER DISORDERS OF BILIRUBIN METABOLISM Status: Resolved Priority: High (6) Tobacco abuse SNOMED Code(s): 044530512 ICD Code: Z72.0 - TOBACCO USE Status: Chronic Priority: Medium (7) Urinary tract infection SNOMED Code(s): 64122965 ICD Code: N39.0 - URINARY TRACT INFECTION, SITE NOT SPECIFIED Status: Resolved Priority: High Qualifiers: Urinary tract infection type: acute cystitis Hematuria presence: with hematuria Qualified Code(s): N30.01 - Acute cystitis with hematuria - Patient Summary/Data Consults: Consultations 11/20/18 15:21 Consult to Physician [CONS] Routine Hospital Course: The patient is a 53-year-old gentleman who was admitted to acute hospitalization on November 19, 2018 this was done secondary to altered mental status. Patient does have a history of EtOH pancreatitis and cirrhosis. The patient also had exhibited upon admission some paranoid ideation and thought that mice were trying to kill him. The patient was admitted and placed on IV rehydration solution and was given thiamine and folate. Because of the patient' s bizarre hallucinations and ideation psychiatrist Dr. Holloway was consulted and had recommended the patient being placed on Haldol 2.5 mg by mouth twice a day. The patient was kept on CIWAA protocol to monitor for alcohol withdrawal symptoms. During the first days of hospitalization the patient had remained confused. On the day before discharge the patient's sensorium had cleared and he was able to supply additional information. The patient says that he had been consuming alcohol heavily and that stopped approximately 20 days prior to hospitalization. The patient had remained awake, alert and oriented. He also was pain free with the exception of dental infection that were causing him to have tooth and jaw pain. The patient also admitted to smoking heavily and this had been treated with a nicotine patch. This was also continued as a outpatient medication. The patient's aforementioned hallucinations had resolved. The patient also had been tolerating his diet well. He has been recommended to continue with his diet as previously tolerated. The patient is also have activity as tolerated. The patient had been given a prescription for Augmentin 875/175 and he is to take 1 by mouth twice a day for dental infection. The patient also had been given 1 mg of folate to take 1 daily for 15 days and thiamine 100 mg 1 daily for 15 days. The patient also has been recommended to follow-up with primary care physician. He has been recommended to abstain from alcohol. The patient has been hemodynamically stable and he has been discharged from acute hospitalization with recommendations listed above. - Patient Instructions Diet: Heart Healthy Diet Activity: As Tolerated - Discharge Plan *PRESCRIPTION DRUG MONITORING PROGRAM REVIEWED*: No *COPY OF PRESCRIPTION DRUG MONITORING REPORT IN PATIENT [place]: No Prescriptions/Med Rec: Amoxicillin/Clavulanate K [Augmentin 875-125 MG] 1 tab PO BID #14 tab Folic Acid 1 mg PO DAILY #15 tablet Melatonin/Pyridoxine HCl (B6) [Melatonin 5 mg Tablet] 1 each PO BEDTIME PRN #30 tablet PRN Reason: Sleep Nicotine [Habitrol] 14 mg TRDERM DAILY #20 patch Thiamine [Vitamin B-1] 100 mg PO DAILY #15 tablet Home Medications: Home Meds Amoxicillin/Clavulanate K [Augmentin 875-125 MG] 1 tab PO BID #14 tab 11/22/18 [ Rx] Folic Acid 1 mg PO DAILY #15 tablet 11/22/18 [Rx] Melatonin/Pyridoxine HCl (B6) [Melatonin 5 mg Tablet] 1 each PO BEDTIME PRN #30 tablet 11/22/18 [Rx] Nicotine [Habitrol] 14 mg TRDERM DAILY #20 patch 11/22/18 [Rx] Thiamine [Vitamin B-1] 100 mg PO DAILY #15 tablet 11/22/18 [Rx] Oxygen Therapy Mode: Room Air Patient Handouts: Amoxicillin capsules or tablets, Substance Use Disorder and Mental Illness, Thiamine, Vitamin B1 tablets, Thiamine, Vitamin B1 injection, Melatonin oral solid dosage forms, Nicotine skin patches, Folic Acid, Vitamin B9 tablets Referrals: Jad Saez MD [Physician] - 11/29/18 8:00 am - Discharge Summary/Plan Comment DC Time >30 min.: Yes - General Info Date of Service: 11/22/18 Admission Dx/Problem (Free Text: Admission Diagnosis/Problem Admission Diagnosis/Problem Altered mental status, Alcohol abuse Subjective Update: Much better today. Feels like he can safely go home. Functional Status: Reports: Pain Controlled - Review of Systems General: Reports: No Symptoms HEENT: Reports: Other (Dental pain) Pulmonary: Reports: No Symptoms Cardiovascular: Reports: No Symptoms Gastrointestinal: Reports: No Symptoms Genitourinary: Reports: No Symptoms Musculoskeletal: Reports: No Symptoms Skin: Reports: No Symptoms Neurological: Reports: No Symptoms Psychiatric: Reports: No Symptoms - Patient Data Vitals - Most Recent: Last Vital Signs Temp 36.4 C 11/22/18 04:00 Pulse 83 11/22/18 04:00 Resp 16 11/22/18 04:00 BP 124/81 11/22/18 04:00 Pulse Ox 98 11/22/18 04:00 Weight - Most Recent: 68 kg I&O - Last 24 hours: Intake & Output 11/21/18 11/22/18 11/22/18 22:59 06:59 14:59 Intake Total 2051 1039 Output Total 1869 Balance 2051 - Lab Results - Last 24 hrs: Laboratory Results - last 24 hr 11/22/18 11/22/18 Range/Units 05:00 05:00 WBC 6.06 (4.0-11.0) K/uL RBC 3.40 L (4.50-5.90) M/uL Hgb 12.3 L (13.0-17.0) g/dL Hct 37.1 L (38.0-50.0) % MCV 109.1 H (80.0-98.0) fL MCH 36.2 H (27.0-32.0) pg MCHC 33.2 (31.0-37.0) g/dL RDW Std Deviation 57.0 (28.0-62.0) fl RDW Coeff of Charli 14 (11.0-15.0) % Plt Count 169 (150-400) K/uL MPV 10.30 (7.40-12.00) fL Add Manual Diff YES Neutrophils % (Manual) 52 (48.0-80.0) % Band Neutrophils % 3 % Lymphocytes % (Manual) 31 (16.0-40.0) % Monocytes % (Manual) 12 (0.0-15.0) % Eosinophils % (Manual) 1 (0.0-7.0) % Basophils % (Manual) 1 (0.0-1.5) % Nucleated RBC % 0.0 /100WBC Absolute Seg Neuts 3.2 (1.4-5.7) Band Neutrophils # 0.2 Lymphocytes # (Manual) 1.9 (0.6-2.4) Monocytes # (Manual) 0.7 (0.0-0.8) Eosinophils # (Manual) 0.1 (0.0-0.7) Basophils # (Manual) 0.1 (0.0-0.1) Nucleated RBCs # 0 K/uL Sodium 136 (136-148) mmol/L Potassium 3.6 (3.5-5.1) mmol/L Chloride 102 (98-107) mmol/L Carbon Dioxide 26.8 (21.0-32.0) mmol/L BUN 5 L (7.0-18.0) mg/dL Creatinine 0.5 L (0.8-1.3) mg/dL Est Cr Clr Drug Dosing 164.33 mL/min Estimated GFR (MDRD) > 60.0 ml/min Glucose 174 H (74-106) mg/dL Calcium 8.6 (8.5-10.1) mg/dL SARAH Results - Last 24 hrs: Microbiology 11/19/18 16:38 Urine Culture - Final Urine, Clean Catch No Growth Med Orders - Current: Current Medications Ciprofloxacin (Ciprofloxacin Hcl) 500 mg PO BID [facility] Folic Acid (Folic Acid) 1 mg PO DAILY [facility] Last Admin: 11/21/18 09:30 Dose: 1 mg Haloperidol (Haldol) 2.5 mg PO Q12HR [facility] Last Admin: 11/21/18 20:53 Dose: 2.5 mg Lorazepam (Ativan) 0 mg IV Q6H PRN; Protocol PRN Reason: Agitation Nicotine (Habitrol) 14 mg TRDERM DAILY [facility] Last Admin: 11/21/18 14:46 Dose: 14 mg Pantoprazole Sodium (Protonix Iv) 40 mg IV Q24H [facility] Last Admin: 11/21/18 19:18 Dose: 40 mg Thiamine HCl (Vitamin B-1) 100 mg PO DAILY [facility] Last Admin: 11/21/18 09:30 Dose: 100 mg Discontinued Medications Ceftriaxone Sodium (Rocephin) 1 gm IM ONETIME ONE Stop: 11/19/18 18:13 Last Admin: 11/19/18 18:22 Dose: Not Given Gadobenate Dimeglumine (Multihance) 20 ml IVPUSH ONETIME STA Stop: 11/20/18 13:42 Last Admin: 11/20/18 13:42 Dose: 13 ml Multivitamins/Minerals 10 ml/Thiamine HCl 100 mg/ Folic Acid 1 mg/ Sodium Chloride 1,011.2 mls @ 125 mls/hr IV ONETIME ONE Stop: 11/20/18 00:48 Last Admin: 11/19/18 17:30 Dose: 125 mls/hr Ceftriaxone Sodium/Dextrose 1 (gm/ Premix) 50 mls @ 100 mls/hr IV ONETIME ONE Stop: 11/19/18 18:51 Last Admin: 11/19/18 18:40 Dose: 100 mls/hr Ceftriaxone Sodium/Dextrose 1 (gm/ Premix) 50 mls @ 100 mls/hr IV Q24H [facility] Last Admin: 11/20/18 18:11 Dose: 100 mls/hr Lorazepam (Ativan) 1 mg IVPUSH ONETIME ONE Stop: 11/19/18 16:44 Last Admin: 11/19/18 17:30 Dose: 1 mg Potassium Chloride (Klor-Con M20) 40 meq PO ONETIME ONE Stop: 11/20/18 09:54 Last Admin: 11/20/18 10:27 Dose: 40 meq Sodium Chloride (Normal Saline) 10 ml IV ONETIME STA Stop: 11/19/18 19:14 Last Admin: 11/19/18 19:19 Dose: 10 ml - Exam Quality Assessment: Denies: Supplemental Oxygen General: Reports: Alert, Oriented, Cooperative, No Acute Distress HEENT: Reports: Pupils Equal, Pupils Reactive, EOMI. Denies: Mucous Membr. Moist/[place] (Poor oral hygiene) Neck: Reports: Supple, Trachea Midline Lungs: Reports: Clear to Auscultation, Normal Respiratory Effort GI/Abdominal Exam: Normal Bowel Sounds, Soft, Non-Tender, No Distention (Male) Exam: Deferred Rectal (Males) Exam: Deferred Back Exam: Reports: Normal Inspection, Full Range of Motion Extremities: Normal Inspection, Normal Range of Motion, No Pedal Edema Skin: Reports: Warm, Dry, Intact Neurological: Reports: No New Focal Deficit Psy/Mental Status: Reports: Alert, Normal Affect, Normal Mood
[2018-11-22 08:40] VITALS: BP 131/90
[2018-11-22] MEDS ORDERED: Ciprofloxacin 500 MG Tab PO SCH (09:00)
[2018-11-22] MEDS: Thiamine 100 MG Tab PO SCH (09:18)
[2018-11-22] MEDS: Folic Acid 1 MG Tab PO SCH (09:18)
[2018-11-22] MEDS: Haloperidol 5 MG Tab PO SCH (09:20)
[2018-11-22] MEDS: Nicotine 14 MG/24 Hr Patch TRDERM SCH (09:20)
== END 2018-11-22 10:30 | disposition home or self-care (01) ==
LOC: MW.ED 16:09 → MW.MS 18:47
PROVIDERS: ADMIT Internal Medicine; ATTEND Internal Medicine
DX: R40.4 Transient alteration of awareness (principal); R44.3 Hallucinations, unspecified; E80.6 Other disorders of bilirubin metabolism; N30.01 Acute cystitis with hematuria; K70.30 Alcoholic cirrhosis of liver without ascites; F10.10 Alcohol abuse, uncomplicated; F17.210 Nicotine dependence, cigarettes, uncomplicated; Z79.899 Other long term (current) drug therapy
CPT/HCPCS: 36415; 70450; 70553; 71045; 76705; 80048; 80053; 80305; 81001; 82140; 84484; 85025; 85027; 85610; 87086; 93005; 96365; 96366; 96368; 96375; 96376; 99285; A9270; A9577; C9113; G0378; G0480; J0696; J2060; J3411; J7040; J7050; 99284

== ENCOUNTER 2019-02-22 07:42 | Emergency (ER) | payer MEDICAID, OTHER ==
--- NOTE | 2019-02-22 07:47 | EDM.PDOC ---
ED HPI GENERAL MEDICAL PROBLEM - General Chief Complaint: Upper Extremity Injury/Pain Stated Complaint: PAIN, NUMBNESS IN LEFT ARM Time Seen by Provider: 02/22/19 07:59 - History of Present Illness INITIAL COMMENTS - FREE TEXT/NARRATIVE: HISTORY AND PHYSICAL: History of present illness: The patient is a 54-year-old male who presents to the ED today with complaints of left arm pain that originates in the left shoulder and radiates down his arm that has been ongoing for the last 3 months but seems to be worse the last 3 weeks. The patient says that when he was admitted to the hospital here at the beginning of November he started having the pain but it seems to have been progressively worsening. 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 He has not been taking anything [id number] for pain because he does not have any money. He says that the pain is not worse with movement but seems to be constant in the beginning and now it seems to be worse when he is doing activities. He has no chest pain fevers chills shortness of breath or other systemic issues. He says the pain originates in his trapezius and left shoulder area but denies any midline neck pain and then it seems to move down his left arm more on the anterior surface. He says that he feels like the pain is more in his joints of the shoulder elbow and wrist but not the hand and now the muscles over the last week or so seemed to be more sore. He is not having weakness he is just stating that he has pain when he does these activities and as a result when the pain kicks in he is not able to exhibit his usual strength. He has no numbness or tingling in this extremity on my evaluation. He has no other joint or extremity complaints. According to the computer the patient has a history of alcoholic pancreatitis alcoholism with alcohol abuse cirrhosis of the liver and heavy tobacco use. He did have an admission here from November 19 to November 22 for altered mental status during which it was discovered that he was having alcohol withdrawal hallucinations and had a full workup and treatment plan including MRI of the brain which I reviewed. At his discharge he was placed on medications and advised to follow-up with primary care. According to him he does not have a primary care physician and he did not follow-up at that time. The patient is also quick to tell me that he has no income source and cannot afford any medications. Review of systems: As per history of present illness and below otherwise all systems reviewed and negative. Past medical history: As per history of present illness and as reviewed below otherwise noncontributory. Surgical history: As per history of present illness and as reviewed below otherwise noncontributory. Social history: No reported history of drug or alcohol abuse. Family history: As per history of present illness and as reviewed below otherwise noncontributory. Physical exam: General: Well-developed well-nourished thin man who is cooperative and interactive and moves all extremities without difficulty or inhibition. Vital signs are noted by me HEENT: Atraumatic, normocephalic, pupils reactive, negative for conjunctival pallor or scleral icterus, mucous membranes moist, throat clear, neck supple, nontender, trachea midline. There are no midline step-offs tenderness defects of the cervical spine but there is some tenderness and spasm of the left trapezius on palpation Lungs: Clear to auscultation, breath sounds equal bilaterally, chest nontender. Heart: S1S2, regular, rate and rhythm no overt murmurs Abdomen: Soft, nondistended, nontender. NABS Pelvis: Deferred Genitourinary: Deferred. Rectal: Deferred. Extremities: Atraumatic, negative for cords or calf pain. On palpation of the left upper extremity I can reproduce the discomfort at the trigger point of the left shoulder but there is no gross fullness and with palpation of the entire left shoulder anteriorly and posteriorly the patient says that there is discomfort but is vague about reporting one particular location. The patient can range of motion at the shoulder elbow and wrist without defects or deficits and when I passively range of motion at the elbow he says that he feels the pain in the shoulder as well as in the biceps area. There are no palpable bony deformities no erythema no joint effusions and no warmth to any of the joints of the left upper extremity. Neurovascular is completely intact throughout and there is no soft tissue swelling or compartment changes and there is no asymmetry left versus right upper extremity. Neurovascular unremarkable. Neuro: Awake, alert, oriented. Cranial nerves II through XII unremarkable. Cerebellum unremarkable. Motor and sensory unremarkable throughout. Exam nonfocal. Diagnostics: X-ray left shoulder Therapeutics: Toradol IM, His note that there were multiple delays in getting his shoulder x-ray performed and in getting it read by the radiologist and it took over 1-1/2 hours. In that time trying to get this x-ray performed and the report obtained the patient has left the ED. He did not receive any referral information or discharge paperwork Impression: Chronic left shoulder and left upper extremity pain likely arthritic with musculoskeletal component Definitive disposition and diagnosis as appropriate pending reevaluation and review of above. Left Arm Pain Score (Numeric/FACES): 8 - Related Data Allergies Allergy/AdvReac Type Severity Reaction Status Date / Time No Known Allergies Allergy Verified 02/22/19 07:51 Home Meds: Home Meds . [No Known Home Meds] 02/22/19 [History] Past Medical History HEENT History: Reports: Impaired Vision, Other (See Below) Other HEENT History: wears glasses Cardiovascular History: Reports: None Respiratory History: Reports: Asthma, Other (See Below) Other Respiratory History: asthma as a child Gastrointestinal History: Reports: Chronic Diarrhea Genitourinary History: Reports: Other (See Below) Other Genitourinary History: difficulty urinating Musculoskeletal History: Reports: None Neurological History: Reports: None Psychiatric History: Reports: None Endocrine/Metabolic History: Reports: None Hematologic History: Reports: None Immunologic History: Reports: None Oncologic (Cancer) History: Reports: None Dermatologic History: Reports: None - Infectious Disease History Infectious Disease History: Reports: None - Past Surgical History Head Surgeries/Procedures: Reports: None HEENT Surgical History: Reports: None Cardiovascular Surgical History: Reports: None GI Surgical History: Reports: Appendectomy, Colonoscopy Male Surgical History: Reports: None Endocrine Surgical History: Reports: None Neurological Surgical History: Reports: None Musculoskeletal Surgical History: Reports: None Oncologic Surgical History: Reports: None Dermatological Surgical History: Reports: Other (See Below) Social & Family History - Family History Family Medical History: Noncontributory - Caffeine Use Caffeine Use: Reports: None Caffeine Use Comment: occ energy drink Review of Systems - Review of Systems Review Of Systems: ROS reveals no pertinent complaints other than HPI. ED EXAM, GENERAL - Physical Exam Exam: See Below (See dictation) Course - Vital Signs Last Recorded V/S: Last Vital Signs Temp 35.9 C 02/22/19 07:49 Pulse 91 02/22/19 07:49 Resp 18 02/22/19 07:49 BP 119/82 02/22/19 07:49 Pulse Ox 98 02/22/19 07:49 - Orders/Labs/Meds Orders: Active Orders 24 hr Category Date Time Status Shoulder Comp Lt [CR] Stat Exams 02/22/19 08:03 Taken Meds: Medications Discontinued Medications Generic Name Dose Route Start Last Admin Trade Name Adwoa PRN Reason Stop Dose Admin Ketorolac Tromethamine 60 mg 02/22/19 08:03 02/22/19 08:15 Toradol IM 02/22/19 08:04 60 mg ONETIME ONE Administration Departure - Departure Time of Disposition: 09:42 Disposition: Eloped 07 Condition: Good Clinical Impression: Pain of left upper extremity - Discharge Information Referrals: PCP,None [Primary Care Provider] - Forms: ED Department Discharge Additional Instructions: The following information is given to patients seen in the emergency department who are being discharged to home. This information is to outline your options for follow-up care. We provide all patients seen in our emergency department with a follow-up referral. The need for follow-up, as well as the timing and circumstances, are variable depending upon the specifics of your emergency department visit. If you don't have a primary care physician on staff, we will provide you with a referral. We always advise you to contact your personal physician following an emergency department visit to inform them of the circumstance of the visit and for follow-up with them and/or the need for any referrals to a consulting specialist. The emergency department will also refer you to a specialist when appropriate. This referral assures that you have the opportunity for followup care with a specialist. All of these measure are taken in an effort to provide you with optimal care, which includes your followup. Under all circumstances we always encourage you to contact your private physician who remains a resource for coordinating your care. When calling for followup care, please make the office aware that this follow-up is from your recent emergency room visit. If for any reason you are refused follow-up, please contact the [facility] emergency department at and ask to speak to the emergency department charge nurse. [facility] Primary care- Internal Medicine and Family [address] [address] Use ice to areas after any activities and only apply ice to bony areas for pain and swelling and apply heat to the muscles as we discussed. Please connect with one of our providers in the clinic for further care and evaluation of this chronic problem and at that point you can also get referral for possible physical therapy. Use [id number] Motrin/ibuprofen/Aleve for inflammation and pain as we discussed. - My Orders Last 24 Hours: My Active Orders 02/22/19 08:03 Shoulder Comp Lt [CR] Stat - Assessment/Plan Last 24 Hours: My Active Orders 02/22/19 08:03 Shoulder Comp Lt [CR] Stat
[2019-02-22 07:55] VITALS: BP 119/82; PULSE 91
[2019-02-22] MEDS ORDERED: Ketorolac 60 MG/2 ML SDV IM ONE (08:03)
--- NOTE | 2019-02-22 09:44 | CR ---
Indication: Pain. Technique: Left shoulder 3 views. Comparison: None Findings: Bones: Alignment is normal. No fractures or bone lesions. Joint spaces: Unremarkable. No significant degenerative changes. Soft tissues: Unremarkable. Impression: No sign of acute injury. Dictated by Ana Perea MD @ Feb 22 2019 9:22AM Signed by Dr. Ana Perea @ Feb 22 2019 9:43AM
== END 2019-02-22 09:39 | disposition left against medical advice (07) ==
LOC: MW.ED 07:42
DX: M25.512 Pain in left shoulder (principal); F17.210 Nicotine dependence, cigarettes, uncomplicated
CPT/HCPCS: 73030; 96372; 99283; J1885

== ENCOUNTER 2019-03-30 06:25 | Emergency (ER) | payer SELFPAY ==
--- NOTE | 2019-03-30 06:42 | EDM.PDOC ---
ED HPI GENERAL MEDICAL PROBLEM - General Chief Complaint: Upper Extremity Injury/Pain Stated Complaint: LT HAND HURTS Time Seen by Provider: 03/30/19 06:35 - History of Present Illness INITIAL COMMENTS - FREE TEXT/NARRATIVE: HISTORY AND PHYSICAL: History of present illness: Patient's a 54-year-old white male with history of alcohol abuse and chronic left upper extremity pain he presents today for evaluation of left upper extremity pain there's been no new trauma no chest pain shortness of breath or other concern he states is been going on for 4-5 months. He has not sought outpatient evaluation and does not have a clinic or private medical doctor that he attributes to prior lack of insurance she states she does have insurance now and is agreeable to referral. Review of systems: As per history of present illness and below otherwise all systems reviewed and negative. Past medical history: As per history of present illness and as reviewed below otherwise noncontributory. Surgical history: As per history of present illness and as reviewed below otherwise noncontributory. Social history: No reported history of drug or alcohol abuse. Family history: As per history of present illness and as reviewed below otherwise noncontributory. Physical exam: HEENT: Atraumatic, normocephalic, pupils reactive, negative for conjunctival pallor or scleral icterus, mucous membranes moist, throat clear, neck supple, nontender, trachea midline. Lungs: Clear to auscultation, breath sounds equal bilaterally, chest nontender. Heart: S1S2, regular, negative for clicks, rubs, or JVD. Abdomen: Soft, nondistended, nontender. Negative for masses or hepatosplenomegaly. Negative for costovertebral tenderness. Pelvis: Stable nontender. Genitourinary: Deferred. Rectal: Deferred. Extremities: Atraumatic, negative for cords or calf pain. Neurovascular unremarkable. Neuro: Awake, alert, oriented. Cranial nerves II through XII unremarkable. Cerebellum unremarkable. Motor and sensory unremarkable throughout. Exam nonfocal. Diagnostics: CBC CMP chest x-ray cervical spine x-ray EKG Therapeutics: None Impression: #1 chronic left upper extremity pain etiology to be determined #2 history of alcohol abuse #3 history of cirrhosis #4 medical noncompliance Definitive disposition and diagnosis as appropriate pending reevaluation and review of above. left arm pain Pain Score (Numeric/FACES): 7 - Related Data Allergies Allergy/AdvReac Type Severity Reaction Status Date / Time No Known Allergies Allergy Verified 03/30/19 06:30 Home Meds: Home Meds . [No Known Home Meds] 02/22/19 [History] Past Medical History HEENT History: Reports: Impaired Vision, Other (See Below) Other HEENT History: wears glasses Cardiovascular History: Reports: None Respiratory History: Reports: Asthma, Other (See Below) Other Respiratory History: asthma as a child Gastrointestinal History: Reports: Chronic Diarrhea Genitourinary History: Reports: Other (See Below) Other Genitourinary History: difficulty urinating Musculoskeletal History: Reports: None Neurological History: Reports: None Psychiatric History: Reports: None Endocrine/Metabolic History: Reports: None Hematologic History: Reports: None Immunologic History: Reports: None Oncologic (Cancer) History: Reports: None Dermatologic History: Reports: None - Infectious Disease History Infectious Disease History: Reports: None - Past Surgical History Head Surgeries/Procedures: Reports: None HEENT Surgical History: Reports: None Cardiovascular Surgical History: Reports: None GI Surgical History: Reports: Appendectomy, Colonoscopy Male Surgical History: Reports: None Endocrine Surgical History: Reports: None Neurological Surgical History: Reports: None Musculoskeletal Surgical History: Reports: None Oncologic Surgical History: Reports: None Dermatological Surgical History: Reports: Other (See Below) Social & Family History - Family History Family Medical History: Noncontributory - Tobacco Use Smoking Status *Q: Current Every Day Smoker Years of Tobacco use: 40 Packs/Tins Daily: 1 - Caffeine Use Caffeine Use: Reports: Coffee, Soda Caffeine Use Comment: occ energy drink - Recreational Drug Use Recreational Drug Use: No ED ROS GENERAL - Review of Systems Review Of Systems: ROS reveals no pertinent complaints other than HPI. ED EXAM, GENERAL - Physical Exam Exam: See Below (See dictation) Course - Vital Signs Last Recorded V/S: Last Vital Signs Temp 36.2 C 03/30/19 06:30 Pulse 116 H 03/30/19 06:30 Resp 18 03/30/19 06:30 BP 131/53 L 03/30/19 06:30 Pulse Ox 94 L 03/30/19 06:30 - Orders/Labs/Meds Orders: Active Orders 24 hr Category Date Time Status C-Spine [Cervical Spine 2V or 3V] [CR] Stat Exams 03/30/19 06:35 Ordered Chest 1V Frontal [CR] Stat Exams 03/30/19 06:35 Ordered CBC WITH AUTO DIFF [HEME] Stat Lab 03/30/19 06:35 Ordered COMPREHENSIVE METABOLIC PN,CMP [CHEM] Stat Lab 03/30/19 06:35 Ordered Departure - Departure Time of Disposition: 06:41 Disposition: Home, Self-Care 01 Condition: Good Clinical Impression: Chronic pain of left upper extremity, History of alcohol abuse, History of cirrhosis - Discharge Information Referrals: PCP,None [Primary Care Provider] - Additional Instructions: The following information is given to patients seen in the emergency department who are being discharged to home. This information is to outline your options for follow-up care. We provide all patients seen in our emergency department with a follow-up referral. The need for follow-up, as well as the timing and circumstances, are variable depending upon the specifics of your emergency department visit. If you don't have a primary care physician on staff, we will provide you with a referral. We always advise you to contact your personal physician following an emergency department visit to inform them of the circumstance of the visit and for follow-up with them and/or the need for any referrals to a consulting specialist. The emergency department will also refer you to a specialist when appropriate. This referral assures that you have the opportunity for followup care with a specialist. All of these measure are taken in an effort to provide you with optimal care, which includes your followup. Under all circumstances we always encourage you to contact your private physician who remains a resource for coordinating your care. When calling for followup care, please make the office aware that this follow-up is from your recent emergency room visit. If for any reason you are refused follow-up, please contact the [facility] emergency department at and asked to speak to the emergency department charge nurse. [facility] Primary Care [address], [place] [address] [facility] Specialty Care - Orthopedic Clinic Professional Building [address] [place] [address], [address] [place] [address] Follow-up primary care/orthopedic clinic above call to schedule routine appointment return as needed as discussed - My Orders Last 24 Hours: My Active Orders 03/30/19 06:35 C-Spine [Cervical Spine 2V or 3V] [CR] Stat Chest 1V Frontal [CR] Stat CBC WITH AUTO DIFF [HEME] Stat COMPREHENSIVE METABOLIC PN,CMP [CHEM] Stat - Assessment/Plan Last 24 Hours: My Active Orders 03/30/19 06:35 C-Spine [Cervical Spine 2V or 3V] [CR] Stat Chest 1V Frontal [CR] Stat CBC WITH AUTO DIFF [HEME] Stat COMPREHENSIVE METABOLIC PN,CMP [CHEM] Stat
[2019-03-30 07:12] LABS: BLOOD UREA NITROGEN,BUN 8 mg/dL (7.0-18.0); CARBON DIOXIDE,CO2 23.1 mmol/L (21.0-32.0); CHLORIDE,CL 94 mmol/L (98-107); GLUCOSE RANDOM 148 mg/dL (74-106); POTASSIUM,K 2.9 mmol/L (3.5-5.1); SODIUM,NA 132 mmol/L (136-148)
[2019-03-30] MEDS ORDERED: Potassium Chloride 20 MEQ Tab.ER PO ONE (07:24)
--- NOTE | 2019-03-30 07:42 | CR ---
INDICATION: Chest pain. TECHNIQUE: PA image of the chest. COMPARISON: None. FINDINGS: Lungs clear. No pleural effusion or pneumothorax. Heart size and pulmonary vasculature within normal limits. No obvious rib fracture or other significant osseous abnormality. IMPRESSION: Negative chest. Dictated by Alfonso Borjas MD @ Mar 30 2019 7:39AM Signed by Dr. Alfonso Borjas @ Mar 30 2019 7:40AM
--- NOTE | 2019-03-30 07:44 | CR ---
INDICATION: Pain. TECHNIQUE: Three views of the cervical spine. COMPARISON: None. FINDINGS: No fracture, erosive change or prevertebral soft tissue swelling. Advanced C6-7 disc degeneration, moderate to advanced C5-6 disc degeneration, mild to moderate C3-4 disc degeneration and mild C4-5 disc degeneration. Mild facet degenerative changes. 1-2 mm C3 posterior subluxation. IMPRESSION: 1. No acute abnormality. 2. Chronic findings, as above. Dictated by Alfonso Borjas MD @ Mar 30 2019 7:40AM Signed by Dr. Alfonso Borjas @ Mar 30 2019 7:42AM
[2019-03-30 08:10] VITALS: BP 100/65
== END 2019-03-30 07:55 | disposition home or self-care (01) ==
LOC: MW.ED 06:25
DX: M79.602 Pain in left arm (principal); G89.29 Other chronic pain; Z90.49 Acquired absence of other specified parts of digestive tract; F17.210 Nicotine dependence, cigarettes, uncomplicated; K74.60 Unspecified cirrhosis of liver
CPT/HCPCS: 36415; 71045; 72040; 80053; 85025; 93005; 99284; A9270

== ENCOUNTER 2019-06-20 11:28 | Emergency (ER) | payer SELFPAY ==
[2019-06-20] MEDS ORDERED: Sodium Chloride 0.9% 10 ML SDV IV PRN (11:29)
[2019-06-20] MEDS ORDERED: Sodium Chloride 0.9% 10 ML Syringe FLUSH PRN (11:29)
[2019-06-20] MEDS ORDERED: Sodium Chloride 0.9% 2.5 ML Syringe FLUSH PRN (11:29)
[2019-06-20] MEDS ORDERED: MVI, Adult with Vitamin K 10 ML, Thiamine 100 MG, Folic Acid 1 MG in Sodium Chloride 0.... IV ONE ×4 (11:34)
--- NOTE | 2019-06-20 11:40 | EDM.PDOC ---
ED HPI GENERAL MEDICAL PROBLEM - General Chief Complaint: Neuro Symptoms/Deficits Stated Complaint: STROKE CODE Time Seen by Provider: 06/20/19 11:33 - History of Present Illness INITIAL COMMENTS - FREE TEXT/NARRATIVE: HISTORY AND PHYSICAL: History of present illness: Patient is 54-year-old male with a history of alcohol abuse who presents with syncopal episode and associated seizure who received Narcan and Zofran per EMS there is no reported recent trauma patient with extremely poor historian on arrival here patient is confused patient does follow commands and move all extremities his speech remains unclear there is no reported fever chills or recent trauma Review of systems: As per history of present illness and below otherwise all systems reviewed and negative. Past medical history: As per history of present illness and as reviewed below otherwise noncontributory. Surgical history: As per history of present illness and as reviewed below otherwise noncontributory. Social history: No reported history of drug or alcohol abuse. Family history: As per history of present illness and as reviewed below otherwise noncontributory. Physical exam: HEENT: Atraumatic, normocephalic, pupils reactive, negative for conjunctival pallor or scleral icterus, mucous membranes dry, throat clear, neck supple, nontender, trachea midline. Lungs: Clear to auscultation, breath sounds equal bilaterally, chest nontender. Heart: S1S2, regular, negative for clicks, rubs, or JVD. Abdomen: Soft, nondistended, nontender. Negative for masses or hepatosplenomegaly. Negative for costovertebral tenderness. Pelvis: Stable nontender. Genitourinary: Deferred. Rectal: Deferred. Extremities: Atraumatic, negative for cords or calf pain. Neurovascular unremarkable. Neuro: Awake, somnolent follows commands and moves all extremities grossly nonfocal exam. Diagnostics: CBC CMP troponin PT/INR chest x-ray EKG CT brain prolactin level blood culture times ammonia ABG urine drug screen Therapeutics: Banana bag at 125 mL an hour surveillance system monitor O2 2 L per nasal cannula saline 2 L bolus Zosyn 4.5 g IV Rocephin 1 g IV and vancomycin 1 g IV Madrigal catheter Impression: #1 altered mental status #2 history of alcohol abuse #3 seizure #4 lactic acidemia #5 rule out sepsis Definitive disposition and diagnosis as appropriate pending reevaluation and review of above. - Related Data Allergies Allergy/AdvReac Type Severity Reaction Status Date / Time No Known Allergies Allergy Verified 06/20/19 11:42 Home Meds: Home Meds . [No Known Home Meds] 02/22/19 [History] Past Medical History HEENT History: Reports: Impaired Vision, Other (See Below) Other HEENT History: wears glasses Cardiovascular History: Reports: None Respiratory History: Reports: Asthma, Other (See Below) Other Respiratory History: asthma as a child Gastrointestinal History: Reports: Chronic Diarrhea Genitourinary History: Reports: Other (See Below) Other Genitourinary History: difficulty urinating Musculoskeletal History: Reports: None Neurological History: Reports: None Psychiatric History: Reports: None Endocrine/Metabolic History: Reports: None Insulin Pump Model and Health Careers Instructor: N/A Hematologic History: Reports: None Immunologic History: Reports: None Oncologic (Cancer) History: Reports: None Dermatologic History: Reports: None - Infectious Disease History Infectious Disease History: Reports: None - Past Surgical History Head Surgeries/Procedures: Reports: None HEENT Surgical History: Reports: None Cardiovascular Surgical History: Reports: None GI Surgical History: Reports: Appendectomy, Colonoscopy Male Surgical History: Reports: None Endocrine Surgical History: Reports: None Neurological Surgical History: Reports: None Musculoskeletal Surgical History: Reports: None Oncologic Surgical History: Reports: None Dermatological Surgical History: Reports: Other (See Below) Social & Family History - Family History Family Medical History: Noncontributory - Caffeine Use Caffeine Use: Reports: Coffee, Soda Caffeine Use Comment: occ energy drink ED ROS GENERAL - Review of Systems Review Of Systems: Comprehensive ROS is negative, except as noted in HPI. ED EXAM, GENERAL - Physical Exam Exam: See Below (See dictation) Course - Vital Signs Text/Narrative:: Patient emergency department course was inclusive of a generalized seizure last approximately 1 minute patient did receive Ativan 2 mg he never desaturated or got bradycardic during the event and he his airway is currently patent and is saturating in the mid 90s on 6 L I discussed case with Dr. Burton who graciously accepted patient for transfer he'll be sent by [facility]. Last Recorded V/S: Last Vital Signs Temp 35.2 C L 06/20/19 11:38 Pulse 119 H 06/20/19 13:07 Resp 12 06/20/19 13:07 BP 136/86 06/20/19 13:07 Pulse Ox 98 06/20/19 13:07 - Orders/Labs/Meds Orders: Active Orders 24 hr Category Date Time Status Assess Neurological Status [RC] ASDIRECTED Care 06/20/19 11:29 Active Cardiac Monitoring [RC] . DIRECTED Care 06/20/19 11:29 Active EKG Documentation Completion [RC] STAT Care 06/20/19 11:29 Active NIH Stroke Scale [RC] ASDIRECTED Care 06/20/19 11:29 Active Nursing Bedside Swallow Screen [RC] ASDIRECTED Care 06/20/19 11:29 Active Oxygen Therapy [RC] ASDIRECTED Care 06/20/19 11:29 Active CULTURE BLOOD [BC] Stat Lab 06/20/19 11:55 Received CULTURE BLOOD [BC] Stat Lab 06/20/19 12:04 Received MVI, Adult with Vitamin K [Infuvite Adult] 10 ml Med 06/20/19 11:34 Active Thiamine [Vitamin B-1] 100 mg Folic Acid 1 mg Sodium Chloride 0.9% [Normal Saline] 1,000 ml IV ONETIME Piperacillin/Tazobactam [Piperacil-Tazobact] 4.5 gm Med 06/20/19 12:32 Active Sodium Chloride 0.9% [Normal Saline] 100 ml IV ONETIME Sodium Chloride 0.9% [Normal Saline] Med 06/20/19 11:29 Active 10 ml IV ASDIRECTED PRN Sodium Chloride 0.9% [Normal Saline] 1,000 ml Med 06/20/19 13:05 Active IV .Bolus Sodium Chloride 0.9% [Normal Saline] 1,000 ml Med 06/20/19 12:37 Active IV STAT Sodium Chloride 0.9% [Saline Flush] Med 06/20/19 11:29 Active 10 ml FLUSH ASDIRECTED PRN Sodium Chloride 0.9% [Saline Flush] Med 06/20/19 11:29 Active 2.5 ml FLUSH ASDIRECTED PRN Vancomycin 1 gm Med 06/20/19 12:32 Active Sodium Chloride 0.9% [Normal Saline (AdvBag)] 250 ml IV ONETIME Blood Culture x2 Reflex Set [OM.PC] Stat Oth 06/20/19 11:34 Ordered Peripheral IV Insertion Adult [OM.PC] Stat Oth 06/20/19 11:29 Ordered Medication Orders Multivitamins/Minerals 10 ml/Thiamine HCl 100 mg/ Folic Acid 1 mg/ Sodium Chloride 1,011.2 mls @ 125 mls/hr IV ONETIME ONE Stop: 06/20/19 19:39 Last Admin: 06/20/19 12:01 Dose: 125 mls/hr Piperacillin Sod/Tazobactam (Sod 4.5 gm/ Sodium Chloride) 100 mls @ 100 mls/hr IV ONETIME ONE Stop: 06/20/19 13:31 Vancomycin HCl 1 gm/ Sodium (Chloride) 250 mls @ 166 mls/hr IV ONETIME ONE Stop: 06/20/19 14:02 Last Admin: 06/20/19 12:54 Dose: 166 mls/hr Sodium Chloride (Normal Saline) 1,000 mls @ 999 mls/hr IV STAT ONE Stop: 06/20/19 13:37 Last Infusion: 06/20/19 13:07 Dose: 244 mls/hr Admin: 06/20/19 12:55 Dose: 999 mls/hr Sodium Chloride (Normal Saline) 1,000 mls @ 999 mls/hr IV .Bolus ONE Stop: 06/20/19 14:05 Last Infusion: 06/20/19 13:07 Dose: 325 mls/hr Admin: 06/20/19 13:06 Dose: 999 mls/hr Sodium Chloride (Saline Flush) 10 ml FLUSH ASDIRECTED PRN PRN Reason: Keep Vein Open Sodium Chloride (Saline Flush) 2.5 ml FLUSH ASDIRECTED PRN PRN Reason: Keep Vein Open Sodium Chloride (Normal Saline) 10 ml IV ASDIRECTED PRN PRN Reason: IV Use Labs: Laboratory Tests 06/20/19 06/20/19 06/20/19 Range/Units 11:30 11:30 11:30 WBC 33.68 H (4.0-11.0) K/uL RBC 4.64 (4.50-5.90) M/uL Hgb 16.3 (13.0-17.0) g/dL Hct 51.5 H (38.0-50.0) % MCV 111.0 H (80.0-98.0) fL MCH 35.1 H (27.0-32.0) pg MCHC 31.7 (31.0-37.0) g/dL RDW Std Deviation 59.9 (28.0-62.0) fl RDW Coeff of Charli 15 (11.0-15.0) % Plt Count 211 (150-400) K/uL MPV 11.20 (7.40-12.00) fL Add Manual Diff YES Neutrophils % (Manual) 74 (48.0-80.0) % Band Neutrophils % 3 % Lymphocytes % (Manual) 14 L (16.0-40.0) % Monocytes % (Manual) 8 (0.0-15.0) % Metamyelocytes % 1 % Nucleated RBC % 0.4 /100WBC Absolute Seg Neuts 24.9 H (1.4-5.7) Band Neutrophils # 1.0 Lymphocytes # (Manual) 4.7 H (0.6-2.4) Monocytes # (Manual) 2.7 H (0.0-0.8) Absolute Metamyelocyte 0.3 Nucleated RBCs # 0 K/uL INR 1.15 APTT 32.8 H (18.6-31.3) SEC ABG pH (7.35-7.45) ABG pCO2 (35-45) mmHG ABG pO2 (75-100) mmHG ABG HCO3 (22-26) mEq/L ABG Total CO2 ABG Base Excess (-2.0-2.0) Lactate (0.20-2.00) mmol/L Sodium 141 (136-148) mmol/L Potassium 3.5 (3.5-5.1) mmol/L Chloride 99 (98-107) mmol/L Carbon Dioxide 9.7 L (21.0-32.0) mmol/L BUN 8 (7.0-18.0) mg/dL Creatinine 1.8 H (0.8-1.3) mg/dL Est Cr Clr Drug Dosing TNP Estimated GFR (MDRD) 39.5 ml/min Glucose 211 H (74-106) mg/dL Calcium 9.8 (8.5-10.1) mg/dL Total Bilirubin 1.0 (0.2-1.0) mg/dL AST 51 H (15-37) IU/L ALT 44 (14-63) IU/L Alkaline Phosphatase 164 H (46-116) U/L Ammonia (19-54) ug/dL Troponin I < 0.050 (0.000-0.056) ng/mL Total Protein 9.1 H (6.4-8.2) g/dL Albumin 4.2 (3.4-5.0) g/dL Globulin 4.9 H (2.6-4.0) g/dL Albumin/Globulin Ratio 0.9 (0.9-1.6) TSH 3rd Generation 2.91 (0.36-3.74) uIU/mL Prolactin 3.0 ng/mL Urine Opiates Screen (NEGATIVE) Ur Oxycodone Screen (NEGATIVE) Urine Methadone Screen (NEGATIVE) Ur Barbiturates Screen (NEGATIVE) Ur Phencyclidine Scrn (NEGATIVE) Ur Amphetamine Screen (NEGATIVE) U Methamphetamines Scrn (NEGATIVE) U Benzodiazepines Scrn (NEGATIVE) U Cocaine Metab Screen (NEGATIVE) U Marijuana (THC) Screen (NEGATIVE) Ethyl Alcohol < 3.0 mg/dL 06/20/19 06/20/19 06/20/19 Range/Units 12:04 12:04 12:15 WBC (4.0-11.0) K/uL RBC (4.50-5.90) M/uL Hgb (13.0-17.0) g/dL Hct (38.0-50.0) % MCV (80.0-98.0) fL MCH (27.0-32.0) pg MCHC (31.0-37.0) g/dL RDW Std Deviation (28.0-62.0) fl RDW Coeff of Charli (11.0-15.0) % Plt Count (150-400) K/uL MPV (7.40-12.00) fL Add Manual Diff Neutrophils % (Manual) (48.0-80.0) % Band Neutrophils % % Lymphocytes % (Manual) (16.0-40.0) % Monocytes % (Manual) (0.0-15.0) % Metamyelocytes % % Nucleated RBC % /100WBC Absolute Seg Neuts (1.4-5.7) Band Neutrophils # Lymphocytes # (Manual) (0.6-2.4) Monocytes # (Manual) (0.0-0.8) Absolute Metamyelocyte Nucleated RBCs # K/uL INR APTT (18.6-31.3) SEC ABG pH 7.266 L (7.35-7.45) ABG pCO2 27 L (35-45) mmHG ABG pO2 138 H (75-100) mmHG ABG HCO3 12 L (22-26) mEq/L ABG Total CO2 11.0 ABG Base Excess -12.8 L (-2.0-2.0) Lactate 14.8 H* (0.20-2.00) mmol/L Sodium (136-148) mmol/L Potassium (3.5-5.1) mmol/L Chloride (98-107) mmol/L Carbon Dioxide (21.0-32.0) mmol/L BUN (7.0-18.0) mg/dL Creatinine (0.8-1.3) mg/dL Est Cr Clr Drug Dosing Estimated GFR (MDRD) ml/min Glucose (74-106) mg/dL Calcium (8.5-10.1) mg/dL Total Bilirubin (0.2-1.0) mg/dL AST (15-37) IU/L ALT (14-63) IU/L Alkaline Phosphatase (46-116) U/L Ammonia 213 H (19-54) ug/dL Troponin I (0.000-0.056) ng/mL Total Protein (6.4-8.2) g/dL Albumin (3.4-5.0) g/dL Globulin (2.6-4.0) g/dL Albumin/Globulin Ratio (0.9-1.6) TSH 3rd Generation (0.36-3.74) uIU/mL Prolactin ng/mL Urine Opiates Screen (NEGATIVE) Ur Oxycodone Screen (NEGATIVE) Urine Methadone Screen (NEGATIVE) Ur Barbiturates Screen (NEGATIVE) Ur Phencyclidine Scrn (NEGATIVE) Ur Amphetamine Screen (NEGATIVE) U Methamphetamines Scrn (NEGATIVE) U Benzodiazepines Scrn (NEGATIVE) U Cocaine Metab Screen (NEGATIVE) U Marijuana (THC) Screen (NEGATIVE) Ethyl Alcohol mg/dL 06/20/19 Range/Units 12:52 WBC (4.0-11.0) K/uL RBC (4.50-5.90) M/uL Hgb (13.0-17.0) g/dL Hct (38.0-50.0) % MCV (80.0-98.0) fL MCH (27.0-32.0) pg MCHC (31.0-37.0) g/dL RDW Std Deviation (28.0-62.0) fl RDW Coeff of Charli (11.0-15.0) % Plt Count (150-400) K/uL MPV (7.40-12.00) fL Add Manual Diff Neutrophils % (Manual) (48.0-80.0) % Band Neutrophils % % Lymphocytes % (Manual) (16.0-40.0) % Monocytes % (Manual) (0.0-15.0) % Metamyelocytes % % Nucleated RBC % /100WBC Absolute Seg Neuts (1.4-5.7) Band Neutrophils # Lymphocytes # (Manual) (0.6-2.4) Monocytes # (Manual) (0.0-0.8) Absolute Metamyelocyte Nucleated RBCs # K/uL INR APTT (18.6-31.3) SEC ABG pH (7.35-7.45) ABG pCO2 (35-45) mmHG ABG pO2 (75-100) mmHG ABG HCO3 (22-26) mEq/L ABG Total CO2 ABG Base Excess (-2.0-2.0) Lactate (0.20-2.00) mmol/L Sodium (136-148) mmol/L Potassium (3.5-5.1) mmol/L Chloride (98-107) mmol/L Carbon Dioxide (21.0-32.0) mmol/L BUN (7.0-18.0) mg/dL Creatinine (0.8-1.3) mg/dL Est Cr Clr Drug Dosing Estimated GFR (MDRD) ml/min Glucose (74-106) mg/dL Calcium (8.5-10.1) mg/dL Total Bilirubin (0.2-1.0) mg/dL AST (15-37) IU/L ALT (14-63) IU/L Alkaline Phosphatase (46-116) U/L Ammonia (19-54) ug/dL Troponin I (0.000-0.056) ng/mL Total Protein (6.4-8.2) g/dL Albumin (3.4-5.0) g/dL Globulin (2.6-4.0) g/dL Albumin/Globulin Ratio (0.9-1.6) TSH 3rd Generation (0.36-3.74) uIU/mL Prolactin ng/mL Urine Opiates Screen NEGATIVE (NEGATIVE) Ur Oxycodone Screen NEGATIVE (NEGATIVE) Urine Methadone Screen NEGATIVE (NEGATIVE) Ur Barbiturates Screen NEGATIVE (NEGATIVE) Ur Phencyclidine Scrn NEGATIVE (NEGATIVE) Ur Amphetamine Screen POSITIVE (NEGATIVE) U Methamphetamines Scrn POSITIVE (NEGATIVE) U Benzodiazepines Scrn NEGATIVE (NEGATIVE) U Cocaine Metab Screen NEGATIVE (NEGATIVE) U Marijuana (THC) Screen NEGATIVE (NEGATIVE) Ethyl Alcohol mg/dL Meds: Medications Generic Name Dose Route Start Last Admin Trade Name Freq PRN Reason Stop Dose Admin Multivitamins/Minerals 10 ml/ 1,011.2 mls @ 125 mls/hr 06/20/19 11:34 12:01 Thiamine HCl 100 mg/ Folic IV 06/20/19 19:39 125 mls/hr Acid 1 mg/ Sodium Chloride ONETIME ONE Administration Piperacillin Sod/Tazobactam 100 mls @ 100 mls/hr 06/20/19 12:32 Sod 4.5 gm/ Sodium Chloride IV 06/20/19 13:31 ONETIME ONE Vancomycin HCl 1 gm/ Sodium 250 mls @ 166 mls/hr 06/20/19 12:32 06/20/19 12: 54 Chloride IV 06/20/19 14:02 166 mls/hr ONETIME ONE Administration Sodium Chloride 1,000 mls @ 999 mls/hr 06/20/19 12:37 06/20/19 13:07 Normal Saline IV 06/20/19 13:37 244 mls/hr STAT ONE Infusion Sodium Chloride 1,000 mls @ 999 mls/hr 06/20/19 13:05 06/20/19 13:07 Normal Saline IV 06/20/19 14:05 325 mls/hr .Bolus ONE Infusion Sodium Chloride 10 ml 06/20/19 11:29 Saline Flush FLUSH ASDIRECTED PRN Keep Vein Open Sodium Chloride 2.5 ml 06/20/19 11:29 Saline Flush FLUSH ASDIRECTED PRN Keep Vein Open Sodium Chloride 10 ml 06/20/19 11:29 Normal Saline IV ASDIRECTED PRN IV Use Discontinued Medications Generic Name Dose Route Start Last Admin Trade Name Freq PRN Reason Stop Dose Admin Ceftriaxone Sodium/Dextrose 1 50 mls @ 100 mls/hr 06/20/19 12:50 gm/ Premix IV 06/20/19 13:19 ONETIME ONE Sodium Chloride Confirm 11/28/19 13:10 Normal Saline Administered 06/20/19 13:11 Dose 100 mls @ as directed .ROUTE .STK-MED ONE Lorazepam Confirm 06/20/19 13:15 Ativan Administered 06/20/19 13:16 Dose 2 mg .ROUTE .STK-MED ONE Ondansetron HCl 4 mg 06/20/19 12:10 06/20/19 12:12 Zofran IVPUSH 06/20/19 12:11 4 mg ONETIME ONE Administration Ondansetron HCl Confirm 06/20/19 12:11 06/20/19 12:45 Zofran Administered 06/20/19 12:12 Not Given Dose 4 mg .ROUTE .STK-MED ONE Departure - Departure Time of Disposition: 13:26 Disposition: DC/Tfer to Acute Hospital 02 Condition: Critical Clinical Impression: Altered mental status, Alcohol abuse, History of cirrhosis, Sepsis, Seizure - Discharge Information Forms: ED Department Discharge - My Orders Last 24 Hours: My Active Orders 06/20/19 13:05 Sodium Chloride 0.9% [Normal Saline] 1,000 ml IV .Bolus - Assessment/Plan Last 24 Hours: My Active Orders 06/20/19 13:05 Sodium Chloride 0.9% [Normal Saline] 1,000 ml IV .Bolus
--- NOTE | 2019-06-20 12:08 | CT ---
INDICATION: Acute mental status changes. Stroke protocol. TECHNIQUE: CT head without IV contrast. COMPARISON: CT head 11/19/2018. FINDINGS: No intracranial hemorrhage, edema, or mass effect. New moderate amount of fluid and mucosal thickening in the left maxillary sinus. Erosive change involving the left anterior maxilla could be related to dental disease in is only partially visualized. There may be similar or erosive change in the right maxilla only partially visualized. Mild cerebral and cerebellar atrophy. Tiny old lacunar infarct medial left thalamus not as well visualized previously. Remainder negative. Impression : No acute intracranial disease. Moderate new left maxillary sinusitis. Lucent erosive change in the left anterior maxilla and possibly in the right maxilla could be related to dental disease. Chronic intracranial disease as above. Please note that all CT scans at this facility use dose modulation, iterative reconstruction, and/or weight-based dosing when appropriate to reduce radiation dose to as low as reasonably achievable. Dictated by Neil Gutierres MD @ Jun 20 2019 12:02PM Signed by Dr. Neil Gutierres @ Jun 20 2019 12:06PM
[2019-06-20 12:09] LABS: BLOOD UREA NITROGEN,BUN 8 mg/dL (7.0-18.0); CARBON DIOXIDE,CO2 9.7 mmol/L (21.0-32.0); CHLORIDE,CL 99 mmol/L (98-107); GLUCOSE RANDOM 211 mg/dL (74-106); POTASSIUM,K 3.5 mmol/L (3.5-5.1); SODIUM,NA 141 mmol/L (136-148)
[2019-06-20] MEDS ORDERED: Ondansetron 4 MG/2 ML SDV IVPUSH ONE (12:10)
[2019-06-20] MEDS ORDERED: Ondansetron 4 MG/2 ML SDV ONE (12:11)
[2019-06-20] MEDS ORDERED: Piperacillin/Tazobactam 4.5 GM in Sodium Chloride 0.9% 100 ML IV ONE (12:32)
[2019-06-20] MEDS ORDERED: Sodium Chloride 0.9% 1,000 ML IV ONE ×2 (12:37→13:05)
[2019-06-20] MEDS ORDERED: cefTRIAXone 1 GM in Premix Bag 1 BAG IV ONE (12:50)
--- NOTE | 2019-06-20 12:52 | CR ---
indication: Chest pain Technique: A single AP portable view of the chest. Comparison: March 30, 2019. Findings: The heart is normal in size. The lungs are clear. No infiltrate, pleural effusion, or pneumothorax is identified. Impression: No acute cardiopulmonary process. Dictated by Nancy Sánchez MD @ Jun 20 2019 12:50PM Signed by Dr. Nancy Sánchez @ Jun 20 2019 12:51PM
--- NOTE | 2019-06-20 12:54 | CR ---
Indication: Pain. Technique: An AP view of the pelvis was obtained. Comparison: None Findings: Both femoral heads are seated within the acetabula. Questionable irregularity of the right acetabulum is identified. CT may be of benefit in further evaluating this finding. No other fractures are identified. Impression: Questionable irregularity of the right acetabulum. Consideration should be given to a CT. Dictated by Nancy Sánchez MD @ Jun 20 2019 12:51PM Signed by Dr. Nancy Sánchez @ Jun 20 2019 12:52PM
--- NOTE | 2019-06-20 12:56 | CR ---
Indication: Pain. Technique: Two views of the right femur. Comparison: None Findings: The femoral head is seated within the acetabulum. On pelvis study, the right acetabulum does not appear to be at the regular. There is vertebrae OS acetabuli. No definite fracture is identified. Impression: No definite fracture identified. Dictated by Nancy Sánchez MD @ Jun 20 2019 12:55PM Signed by Dr. Nancy Sánchez @ Jun 20 2019 12:55PM
[2019-06-20 13:08] VITALS: BP 136/86; PULSE 119
[2019-06-20] MEDS ORDERED: Sodium Chloride 0.9% 100 ML ONE (13:10)
[2019-06-20] MEDS ORDERED: LORazepam 2 MG/ML SDV IVPUSH ONE (13:15)
[2019-06-20] MEDS ORDERED: LORazepam 2 MG/ML SDV ONE (13:15)
--- NOTE | 2019-06-20 14:19 | CR ---
Indication: Intubation. Technique: A single AP portable view of the chest. Comparison: Study from earlier today. The current study is dated 1405 hours. Findings: An ET tube is identified with the tip 8 cm superior to level of gabriel. The heart is normal in size. The lungs are clear. No infiltrate, pleural effusion, pneumothorax identified. Impression: Intubation. Dictated by Nancy Sánchez MD @ Jun 20 2019 2:16PM Signed by Dr. Nancy Sánchez @ Jun 20 2019 2:17PM
[2019-06-20] MEDS ORDERED: Etomidate 2 MG/ML 20 ML SDV IVPUSH ONE (19:03)
[2019-06-20] MEDS ORDERED: Rocuronium 100 MG/10 ML Syringe IVPUSH ONE (19:04)
== END 2019-06-20 14:47 ==
LOC: MW.ED 11:28
DX: R56.9 Unspecified convulsions (principal); R55 Syncope and collapse; F10.10 Alcohol abuse, uncomplicated; E87.2 Acidosis; Z90.49 Acquired absence of other specified parts of digestive tract
CPT/HCPCS: 31500; 36415; 36600; 43752; 70450; 71045; 72170; 73552; 80053; 80305; 80320; 82140; 82803; 83605; 84146; 84443; 84484; 85025; 85610; 85730; 87040; 87186; 93005; 96365; 96366; 96375; 99291; 99292; J0330; J0696; J2060; J2405; J2704; J3370; J3411; J3490; J7040; J7050; G0480

== ENCOUNTER 2019-06-30 06:09 | Emergency (ER) | payer SELFPAY ==
--- NOTE | 2019-06-30 06:53 | EDM.PDOC ---
ED HPI GENERAL MEDICAL PROBLEM - General Chief Complaint: Lower Extremity Injury/Pain Stated Complaint: RT LEG PAIN Time Seen by Provider: 06/30/19 06:46 - History of Present Illness INITIAL COMMENTS - FREE TEXT/NARRATIVE: HISTORY AND PHYSICAL: History of present illness: Patient 54-year-old male presents with a concern of right leg pain he was recently discharged from the hospital after altered mental status he denies chest pain shortness breath or other concern. Review of systems: As per history of present illness and below otherwise all systems reviewed and negative. Past medical history: As per history of present illness and as reviewed below otherwise noncontributory. Surgical history: As per history of present illness and as reviewed below otherwise noncontributory. Social history: No reported history of drug or alcohol abuse. Family history: As per history of present illness and as reviewed below otherwise noncontributory. Physical exam: HEENT: Atraumatic, normocephalic, pupils reactive, negative for conjunctival pallor or scleral icterus, mucous membranes moist, throat clear, neck supple, nontender, trachea midline. Lungs: Clear to auscultation, breath sounds equal bilaterally, chest nontender. Heart: S1S2, regular, negative for clicks, rubs, or JVD. Abdomen: Soft, nondistended, nontender. Negative for masses or hepatosplenomegaly. Negative for costovertebral tenderness. Pelvis: Stable nontender. Genitourinary: Deferred. Rectal: Deferred. Extremities: Atraumatic, negative for cords or calf pain. Neurovascular unremarkable. Neuro: Awake, alert, oriented. Cranial nerves II through XII unremarkable. Cerebellum unremarkable. Motor and sensory unremarkable throughout. Exam nonfocal. Diagnostics: Venous Doppler right lower extremity Therapeutics: None Impression: #1 right lower extremity pain DVT ruled out #1 medical screening exam Definitive disposition and diagnosis as appropriate pending reevaluation and review of above. abdomen;right inguinal area Pain Score (Numeric/FACES): 10 - Related Data Allergies Allergy/AdvReac Type Severity Reaction Status Date / Time No Known Allergies Allergy Verified 06/30/19 06:22 Home Meds: Home Meds . [No Known Home Meds] 02/22/19 [History] Past Medical History HEENT History: Reports: Impaired Vision, Other (See Below) Other HEENT History: wears glasses Cardiovascular History: Reports: None Respiratory History: Reports: Asthma, Other (See Below) Other Respiratory History: asthma as a child Gastrointestinal History: Reports: Chronic Diarrhea Genitourinary History: Reports: Other (See Below) Other Genitourinary History: difficulty urinating Musculoskeletal History: Reports: None Neurological History: Reports: Seizure Psychiatric History: Reports: Addiction Endocrine/Metabolic History: Reports: None Insulin Pump Model and Sausage Stringer: N/A Hematologic History: Reports: None Immunologic History: Reports: None Oncologic (Cancer) History: Reports: None Dermatologic History: Reports: None - Infectious Disease History Infectious Disease History: Reports: None - Past Surgical History Head Surgeries/Procedures: Reports: None HEENT Surgical History: Reports: None Cardiovascular Surgical History: Reports: None GI Surgical History: Reports: Appendectomy, Colonoscopy Male Surgical History: Reports: None Endocrine Surgical History: Reports: None Neurological Surgical History: Reports: None Musculoskeletal Surgical History: Reports: None Oncologic Surgical History: Reports: None Dermatological Surgical History: Reports: Other (See Below) Social & Family History - Family History Family Medical History: Noncontributory - Tobacco Use Smoking Status *Q: Current Every Day Smoker Years of Tobacco use: 40 Packs/Tins Daily: 1 - Caffeine Use Caffeine Use: Reports: Coffee, Soda Caffeine Use Comment: occ energy drink - Recreational Drug Use Recreational Drug Use: No Review of Systems - Review of Systems Review Of Systems: Comprehensive ROS is negative, except as noted in HPI. ED EXAM, GENERAL - Physical Exam Exam: See Below (See dictation) Course - Vital Signs Text/Narrative:: CT demonstrates comminuted acetabular fracture further investigation reveals that this was evaluated by orthopedic surgery and surgery was offered as an option when he was transferred to [facility] prior patient declined at this time he does agree with transfer for resumption of surgery as discussed with orthopedic surgery on his recent hospitalization at [place]. I discussed case with Dr. Villanueva who has accepted the patient Last Recorded V/S: Last Vital Signs Temp 36.1 C 06/30/19 06:17 Pulse 97 06/30/19 06:17 Resp 18 06/30/19 06:17 BP 143/97 H 06/30/19 06:17 Pulse Ox 96 06/30/19 06:17 - Orders/Labs/Meds Orders: Active Orders 24 hr Category Date Time Status EKG Documentation Completion [RC] STAT Care 06/30/19 09:37 Active Labs: Laboratory Tests 06/30/19 06/30/19 06/30/19 Range/Units 09:42 09:42 09:42 WBC 12.81 H (4.0-11.0) K/uL RBC 3.67 L (4.50-5.90) M/uL Hgb 12.6 L (13.0-17.0) g/dL Hct 37.7 L (38.0-50.0) % MCV 102.7 H (80.0-98.0) fL MCH 34.3 H (27.0-32.0) pg MCHC 33.4 (31.0-37.0) g/dL RDW Std Deviation 57.1 (28.0-62.0) fl RDW Coeff of Hcarli 15 (11.0-15.0) % Plt Count 286 (150-400) K/uL MPV 9.90 (7.40-12.00) fL Neut % (Auto) 66.9 (48.0-80.0) % Lymph % (Auto) 20.5 (16.0-40.0) % [place] % (Auto) 9.8 (0.0-15.0) % Eos % (Auto) 2.3 (0.0-7.0) % Baso % (Auto) 0.5 (0.0-1.5) % Neut # (Auto) 8.6 H (1.4-5.7) K/uL Lymph # (Auto) 2.6 H (0.6-2.4) K/uL [place] # (Auto) 1.3 H (0.0-0.8) K/uL Eos # (Auto) 0.3 (0.0-0.7) K/uL Baso # (Auto) 0.1 (0.0-0.1) K/uL Nucleated RBC % 0.0 /100WBC Nucleated RBCs # 0 K/uL INR 1.14 Sodium 142 (136-148) mmol/L Potassium 3.9 (3.5-5.1) mmol/L Chloride 105 (98-107) mmol/L Carbon Dioxide 24.7 (21.0-32.0) mmol/L BUN 16 (7.0-18.0) mg/dL Creatinine 1.1 (0.8-1.3) mg/dL Est Cr Clr Drug Dosing 73.39 mL/min Estimated GFR (MDRD) > 60.0 ml/min Glucose 109 H (74-106) mg/dL Calcium 8.2 L (8.5-10.1) mg/dL Total Bilirubin 1.0 (0.2-1.0) mg/dL AST 74 H (15-37) IU/L ALT 65 H (14-63) IU/L Alkaline Phosphatase 422 H (46-116) U/L Total Protein 7.7 (6.4-8.2) g/dL Albumin 3.3 L (3.4-5.0) g/dL Globulin 4.4 H (2.6-4.0) g/dL Albumin/Globulin Ratio 0.8 L (0.9-1.6) Meds: Medications Discontinued Medications Generic Name Dose Route Start Last Admin Trade Name Freq PRN Reason Stop Dose Admin Morphine Sulfate 2 mg 06/30/19 09:37 06/30/19 09:49 Morphine IVPUSH 06/30/19 09:38 2 mg ONETIME ONE Administration Ondansetron HCl 4 mg 06/30/19 09:37 06/30/19 09:49 Zofran IVPUSH 06/30/19 09:38 4 mg ONETIME ONE Administration Departure - Departure Time of Disposition: 06:53 Disposition: DC/Tfer to Acute Hospital 02 Condition: Good Clinical Impression: Acetabular fracture - Discharge Information Instructions: Leg Cramps Referrals: PCP,None [Primary Care Provider] - Forms: ED Department Discharge Additional Instructions: Tylenol or motrin at home for pain. Use ice or heat as needed for discomfort. Follow up with primary care provider in the next week. - My Orders Last 24 Hours: My Active Orders 06/30/19 09:37 EKG Documentation Completion [RC] STAT - Assessment/Plan Last 24 Hours: My Active Orders 06/30/19 09:37 EKG Documentation Completion [RC] STAT
--- NOTE | 2019-06-30 08:33 | US ---
INDICATION: RT UPPER LEG PAIN INDICATION: Lower extremity pain and swelling. TECHNIQUE: Ultrasound venous duplex lower right extremity. Compression venous exam was performed using rangel-scale, color Doppler, and spectral Doppler imaging. COMPARISON: None. FINDINGS: Sonographic imaging demonstrates the right common femoral, deep femoral, superficial femoral, popliteal, posterior tibial and greater saphenous veins to be fully compressible with normal color Doppler blood flow. IMPRESSION: No DVT identified in the right lower extremity. Dictated by Christopher Galdamez MD @ 06/30/2019 8:32:08 AM Dictated by: Christopher Galdamez MD @ 06/30/2019 08:32:14 (Electronically Signed)
--- NOTE | 2019-06-30 09:17 | CR ---
INDICATION: Pt w/rt hip pain. No known injury. History: Right hip pain. No known injury. COMPARISON : 06/20/2019. TECHNIQUE : AP radiograph of the pelvis, two views of the right hip. 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 This is inconsistent with the history of no known injury. CT is suggested to further assess. The symphysis pubis and superior/inferior pubic rami are intact. The femoral head and neck are intact. Impression: 1. 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 2. This imaging finding is inconsistent with the provided history of no known injury. 3. CT of the pelvis/proximal femora is suggested to further assess. 4. Case reviewed with Dr. Babin, emergency department, 06/30/2019, 0915 hours. Dictated by Christopher Galdamez MD @ 06/30/2019 9:16:05 AM Dictated by: Christopher Galdamez MD @ 06/30/2019 09:16:14 (Electronically Signed)
[2019-06-30] MEDS ORDERED: Ondansetron 4 MG/2 ML SDV IVPUSH ONE (09:37)
[2019-06-30] MEDS ORDERED: Morphine 2 MG/ML Syringe IVPUSH ONE ×2 (09:37→11:42)
[2019-06-30 10:16] LABS: BLOOD UREA NITROGEN,BUN 16 mg/dL (7.0-18.0); CARBON DIOXIDE,CO2 24.7 mmol/L (21.0-32.0); CHLORIDE,CL 105 mmol/L (98-107); GLUCOSE RANDOM 109 mg/dL (74-106); POTASSIUM,K 3.9 mmol/L (3.5-5.1); SODIUM,NA 142 mmol/L (136-148)
--- NOTE | 2019-06-30 11:07 | CR ---
INDICATION: Pt w/back pain. TECHNIQUE: Chest 1 view. COMPARISON: 08/20/18 FINDINGS: Cardiovascular and mediastinum: Heart size and vasculature are normal in caliber and appearance. Mediastinum is within normal limits. Lungs and pleural space: Lungs are clear. No sign of infiltrate or mass. No sign of pleural effusion. No pneumothorax. Bones and soft tissues: No significant findings. IMPRESSION: Unremarkable chest. Dictated by: Wenceslao James MD @ 06/30/2019 11:06:10 (Electronically Signed)
--- NOTE | 2019-06-30 11:15 | CT ---
HISTORY: Abnormal radiographs demonstrating a right acetabular fracture. TECHNIQUE: Noncontrast CT of the pelvis. Noncontrast CT of the right hip. COMPARISON: Radiographs 06/30/2019. FINDINGS: There is a comminuted multi-directional acute or subacute fracture of the right acetabulum. No underlying lytic or sclerotic bone lesion. Fracture disrupts the superior, medial, anterior and posterior valadez of the acetabulum. Fracture demonstrates up to approximately 2 cm of displacement at the articular surface (e.g. sagittal image #60 of series 204). There is protrusio deformity of the hip. There is soft tissue hemorrhage surrounding the fracture. Low density within the right iliacus muscle relates to hemorrhage or edema. There is no acute right proximal femoral fracture. - Subtle nondisplaced fracture of the right inferior pubic ramus is seen on image #244 series 201. The right acetabular fracture extends to the junction with the superior pubic ramus. - On the left, superior and inferior pubic rami are intact. There is no left acetabular or proximal femoral fracture. The sacral ala are intact. There degenerative changes within the lumbar spine. - Vascular calcifications. Presacral edema. Small amount of strandy hemorrhage tracks superiorly within the right retroperitoneum. IMPRESSION: 1. Comminuted multi-directional acute or subacute fracture of the right acetabulum with disruption of the articular surface. Approximately 2 cm of maximal displacement at the articular surface. No underlying bone lesion. No right proximal femoral fracture. Protrusio deformity of the right hip is present secondary to the fracture displacement. 2. Subtle nondisplaced fracture of the right inferior pubic ramus. 3. No acute left sophia pelvic fracture. Please note that all CT scans at this facility use dose modulation, iterative reconstruction, and/or weight-based dosing when appropriate to reduce radiation dose to as low as reasonably achievable. Dictated by Sundar Johnston MD @ Jun 30 2019 11:06AM (Electronically Signed)
[2019-06-30 11:45] VITALS: BP 123/77; PULSE 85
== END 2019-06-30 12:30 ==
LOC: MW.ED 06:09
DX: S32.401A Unspecified fracture of right acetabulum, initial encounter for closed fracture (principal); S32.591A Other specified fracture of right pubis, initial encounter for closed fracture; F17.210 Nicotine dependence, cigarettes, uncomplicated; J45.909 Unspecified asthma, uncomplicated; Z79.899 Other long term (current) drug therapy; X58.XXXA Exposure to other specified factors, initial encounter
CPT/HCPCS: 36415; 71045; 72192; 73502; 73700; 80053; 85025; 85610; 93005; 93971; 96374; 96375; 96376; 99285; J2270; J2405; 99284